=== PATIENT | female | born 1960 | race Caucasian/White ===

== ENCOUNTER 2016-12-11 15:26 | Observation (INO) | payer BC ==
[~2016-12-11 15:26] MED LIST: ISOVUE-370 76%-LOCM 1 ML ONE
[2016-12-11] MEDS ORDERED: Ondansetron HCl/PF 4 MG/2 ML Vial IVP PRN (16:37)
[2016-12-11] MEDS ORDERED: HYDROcodone/Acetaminophen 7.5/325 mg Tablet PO PRN (16:37)
[2016-12-11] MEDS ORDERED: Acetaminophen 325 MG TAB PO PRN (16:37)
[2016-12-11] MEDS ORDERED: Zolpidem Tartrate 5 MG TAB PO PRN (16:37)
[2016-12-11] MEDS ORDERED: methylPREDNISolone Sod Succ/PF 125 MG/2 ML VIAL IVP SCH (16:45)
[2016-12-11 16:49] VITALS: BMI 39.2
[2016-12-11 17:05] LABS: #Lymphocytes 0.6 thou/uL (1.20-3.40); #Monocytes 0.3 thou/uL (0.11-0.59); #Neutrophils 9.5 thou/uL (1.40-6.50); %Basophils 0.2 % (0.0-1.0); %Eosinophils 0.2 % (0.0-10.0); %Lymphocytes 5.6 % (21.0-51.0); %Monocytes 2.5 % (0.0-10.0); Hematocrit 38.4 % (36.0-47.0); Mean Platelet Volume 9.1 fL (7.4-10.4); Red Blood Cell (RBC) Count 4.47 mill/uL (4.20-5.40); White Blood Cell (WBC) Count 10.4 thou/uL (4.8-10.8)
[2016-12-11 17:28] LABS: ALT (SGPT) 21 U/L (8-55); AST (SGOT) 20 U/L (5-34); Alkaline Phosphatase 69 U/L (40-150); Anion Gap 10 mmol/L (10-20); BUN (Urea Nitrogen) 10 mg/dL (9.8-20.1); Bilirubin, Total 0.3 mg/dL (0.2-1.2); Calc. Creatinine Clearance 139 mL/min (70-130); Calcium 8.5 mg/dL (7.8-10.44); Carbon Dioxide 27 mmol/L (22-29); Chloride 105 mmol/L (98-107); Estimated GFR-MDRD 82
--- NOTE | 2016-12-11 17:45 | HP ---
PRIMARY CARE PROVIDER: Dr. Tino eL. Patient referred as a direct admit by Dr. Dandre Story. HISTORY OF PRESENT ILLNESS: The patient has had Crohn's disease for 2 years. In March of this ye ar, she had a big flare with abdominal pain, bloody diarrhea up to 15 times a day. She was tried on Humira through [facility]. In September, it was working adequately and it was stopped. She has had sinc e that time some intermittent abdominal pain, more bloody diarrhea, not is often is 15 times a day, but up until admission. She states her stool has been formed and normal this morning. She had a fe tara of 101.5 last night, 102 last week. She has had no chills, fever, sweats. She was recently judi krystle on Flagyl and prednisone 250 mg p.o. t.i.d. of Flagyl 40 mg in declining doses of prednisone. B ecause of her symptomatology, she was referred for admission. PAST MEDICAL HISTORY: Crohn's disease for 2 years, hypothyroidism on supplement therapy. CURRENT MEDICATIONS: Routine Synthroid 100 mcg a day, recent Flagyl 250 t.i.d., prednisone 40 mg a day. ALLERGIES: None. PAST SURGICAL HISTORY: She had an ectopic with the tube resected. She has had a C-sectio n. She has had carpal tunnel surgery on the right and a tonsillectomy at 19 years of age. FAMILY HISTORY: Mother has inflammatory bowel disease, has had no abdominal aortic aneurysm repair and has a cholesterol problem. Father is alive and well. SOCIAL HISTORY: , nontobacco, nonalcohol user. 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 REVIEW OF SYSTEMS: General: No headaches, dizziness, or fainting. Eyes: No double vision, blurre d vision, flashing lights. ENT: No ear pain or drainage. No nasal bleeding. No trouble swallowin g. Cardiac: No chest pain, orthopnea, or paroxysmal nocturnal dyspnea. Respirations: No cough, w heezing, or asthma. Gastrointestinal: In addition to present illness, she had nausea yesterday wit h no emesis. She has had some vague left abdominal pain. Otherwise, see present illness. Genitour inary: No hematuria, dysuria, or nocturia. Musculoskeletal: No pain or swelling in arms or legs. Neurologic: No strokes, seizures, or focal weakness. Psychiatric: No anxiety, depression. Skin: She had some lumps on her lower legs near her ankle. Recently, however, they disappeared with pre dnisone therapy. No skin lesions otherwise. Heme/Lymph: No tender or swollen lymph nodes in axill a, inguinal, or cervical area. PHYSICAL EXAMINATION: GENERAL: She is alert, appropriate, oriented, cooperative. VITAL SIGNS: Temperature 98.2, pulse 82, respiration 14, blood pressure 118/70. HEENT: Reveal pupils are equal, round, and reactive to light. Extraocular movements are intact. S clerae white. Tympanic membranes clear. Nose clear. Throat clear. NECK: Supple, without jugular venous distention, adenopathy, or thyromegaly. CHEST: Clear to auscultation and percussion. HEART: Regular rate and rhythm. First and second heart sounds are clear. There are no appreciated murmurs or gallops. ABDOMEN: Soft, bowel sounds are normal. There is no significant tenderness, no masses, no hepatosp lenomegaly. EXTREMITIES: Reveal 1+ edema with no cyanosis or clubbing. SKIN: Warm and dry without bruises or rash. HEME/LYMPH: Reveal no tender or swollen lymph nodes in axilla, inguinal or cervical area. No petec hial hemorrhages, no purpura. NEUROLOGIC: Cranial nerves II-XII are intact. Deep tendon reflexes symmetric. Moves all extremiti es. LABORATORY STUDIES: None. ADMITTING DIAGNOSES: 1. Crohn's disease. 2. Bloody diarrhea. 3. Abdominal pain. 4. Fever. 5. Hypothyroidism. PLAN: 1. CBC, comp metabolic profile. 2. Urinalysis, blood and urine cultures. 3. Chest x-ray PA and lateral. 4. CT scan of the abdomen with IV and oral contrast. IV Flagyl 500 mg t.i.d, Rocephin 2 g daily, S brandon-Medrol 125 mg IV push. Continue oral Synthroid. Consult Dr. Ash. We evaluate when data in.
[2016-12-11 18:31] LABS: Anisocytosis MODERATE=16-30 cells (100X) (0-5/hpf); Band 7 % (5-11); Elliptocytes SLIGHT = 2-5 cells (100X) (0-1/hpf); Neutrophil 88 % (42-75); Ovalocytes SLIGHT = 2-5 cells (100X) (0-1/hpf); Polychromasia SLIGHT = 2-3 cells (100X) (0-2/hpf); Target Cells SLIGHT = 2-5 cells (100X) (0-1/hpf); Tear Drops SLIGHT = 2-5 cells (100X) (0-1/hpf)
[2016-12-11] MEDS: cefTRIAXone\\ROCEPHIN 2 GM in Sodium Chloride 0.9% 100 ML IVPB SCH (18:32)
--- NOTE | 2016-12-11 19:31 | RAD ---
TWO VIEWS OF THE CHEST: 12/11/16 COMPARISON: None. HISTORY: Fever. History of Crohn's disease. FINDINGS: Two views of the chest show normal sized cardiomediastinal silhouette. There is no evidence of conso lidation, mass, or pleural effusion. The bones are unremarkable. IMPRESSION: No evidence of acute cardiopulmonary disease. POS: [facility]
[2016-12-11] MEDS: metroNIDAZOLE 500 MG in Premix Bag 1 BAG IVPB SCH (20:54)
[2016-12-11 21:02] LABS: Bilirubin Negative (Negative); Blood, Urine Negative (Negative); Glucose, Urine (Dipstick) Negative (Negative); Ketone, Urine Negative (Negative); Nitrite Negative (Negative); Protein, Urine (Dipstick) Negative (Neg-Trace); Urobilinogen 0.2 mg/dL (0.2-1.0)
[2016-12-11 21:04] LABS: Bacteria/HPF None Seen HPF (None Seen); Hyaline Casts/LPF 0-3 HYALINE CAST LPF (0-3 Hyaline); RBC/HPF 0-3 HPF (0-3); Squamous Epithelial 0-3 HPF (0-3); WBC/HPF None Seen HPF (0-3)
--- NOTE | 2016-12-11 21:56 | CT ---
CT OF THE ABDOMEN AND PELVIS WITH CONTRAST: 12/11/16 COMPARISON: MRI abdomen, 11/29/16. HISTORY: History of Crohn's disease with abdominal pain. TECHNIQUE: Multiple contiguous axial images were obtained in a CT of the abdomen and pelvis with contrast. PO c ontrast was administered. Coronal reformats were performed. FINDINGS: There is stranding changes surrounding the sigmoid colon from just above the rectum to the junction of the descending colon and sigmoid colon. This is stable compared to the findings from prior MRI. T here are a few scattered diverticula appreciated on this exam which were not definitively appreciate d on the prior examination. No free air or free fluid are seen in the abdomen or pelvis. The small b owel is normal in caliber without significant distention. No appendix is visualized. The liver, gall bladder, kidneys, adrenal glands, spleen, and pancreas are unremarkable. No abdominal or pelvic lymp hadenopathy are seen. The reproductive organs are unremarkable. There is a large hiatal hernia. The abdominal wall soft tissues are unremarkable. Degenerative marte es are seen in the spine. IMPRESSION: 1. There is stable stranding changes and thickening in the wall of the sigmoid colon. this coul d be secondary to either Crohn's disease or acute diverticulitis as diverticula are still seen in th e vicinity of the stranding change. 2. Hiatal hernia. POS: [facility]
[2016-12-12] MEDS: metroNIDAZOLE 500 MG in Premix Bag 1 BAG IVPB SCH ×3 (04:04→21:04)
[2016-12-12] MEDS: Levothyroxine Sodium 100 MCG TAB PO SCH (05:03)
--- NOTE | 2016-12-12 06:31 | CON ---
DATE OF CONSULTATION: 12/11/2016 HISTORY OF PRESENT ILLNESS: Ms. Parr was admitted to the hospital today secondary to fever and left lower quadrant pain. 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 Colorectal surgeon did a colonoscopy there and showed necrotizing granulomas and she was refe rred here in 2014 with diagnosis of Crohn's. Initially, we recommended starting TNF inhibitors with perianal disease, but she refused that and we started 6-MP. In 2014, she felt she was doing pretty well. We did not see her back until March 2016 at which time she was having bleeding, diarrhea. She had negative C. diff then, reevaluated as far as labs, and put on Levaquin and Flagyl. She has stopped 6-mercaptopurine in the interval since we have seen her and was not on any medications. On starting Remicade at that point in time, she does not qualify for that and placed on Humira which s he started in April. In May, she felt she was improving and returned in November because of i ncreased fatigue, arthralgias, and increased problems with perianal disease and was stopped the Humi ra. She underwent upper and lower endoscopy in late September. She had anal fissures, skin tags, and hy pertrophied anal papillae, congested vascular pattern, decreased inflammation in the rectum and sigm oid colon from 0 to 40 cm. She has had iron-deficiency anemia and was referred to Hematology for IV iron. She had normal upper endoscopy. MR enterography was ordered, which she did not perform unti l 11/29/2016, which showed thickening in the sigmoid colon from the rectum at the junction of sigmoi d colon and left colon with pericolonic fluid and colonic thickening. She has stopped the Humira on her own and we are planning on starting Entocort which she has not started yet. She returned to [facility] office on 12/06/2016. She was having low-grade fevers. We placed her on prednisone, levofloxacin , and metronidazole. She had a bone scan that showed osteopenia. She get hepatitis B and C antibod ies which were negative. QuantiFERON is pending and she had a histoplasmosis urine antigen ordered, which is pending. These were both done and she denied any fever and had been on anti-TNF agents. She returned to the office today and said she was having sharp left lower quadrant pain intermittent ly last night and still fever up to a 103. The decision was made to admit her to the hospital. PAST MEDICAL HISTORY: 1. Anal fissures and fistulas. Crohn's disease in the perianal area. Initially, this was felt to be hidradenitis but seems to be Crohn's based on serology and biopsy showing granulomas. 2. Iron-deficiency anemia. 3. Left lower quadrant pain. 4. Hypothyroidism. PAST SURGICAL HISTORY: Carpal tunnel, colonoscopy, ectopic , laparoscopy, section . ALLERGIES: KIWI, LATEX, STRAWBERRIES, and WALNUTS. MEDICATIONS: Prednisone, levofloxacin, metronidazole, hydralazine, and Synthroid. PHYSICAL EXAMINATION: VITAL SIGNS: In the office today, temperature 98, pulse 100, blood pressure 122/84. Weight 230. LUNGS: Clear. HEART: Regular rate and rhythm without clicks or murmurs. ABDOMEN: Soft, tender in the left lower quadrant. There is no rebound. There is no guarding. REVIEW OF SYSTEMS: Negative for dysuria, frequency, urgency, cough, shortness of breath, dyspnea. She had had some nodules on her skin in her lower legs at last visit, but these have resolved. ASSESSMENT: History of Crohn's. I do not think she ever had hidradenitis. She had no real improve ment with Humira but stopped on her own after 3 months. She has been on no therapy for several richard hs now and re-presented to the office 2 months after the last endoscopy with left lower quadrant mellissa n and fever and MRI showed fluid around the left colon. She was started empirically back on antibio tics, attempting get her on Entyvio as an outpatient and will be started on prednisone, but she cont inues to have fever and now is being admitted for further imaging and workup. RECOMMENDATIONS: 1. CAT scan of abdomen and pelvis. 2. IV Flagyl, Levaquin, and Solu-Medrol. 3. Clostridium difficile toxin. 4. Urine histoplasmosis antigen. 5. Chest x-ray. We will follow along during this hospitalization.
--- NOTE | 2016-12-12 08:08 | PDOC.PN ---
- Subjective Encounter Start Date: 12/12/16 Encounter Start Time: 08:04 Subjective: mild abd discomfort,no diarrhea - Objective Resuscitation Status: Resuscitation Status FULL:Full Resuscitation MAR Reviewed: Yes Vital Signs & Weight: Vital Signs (12 hours) Temp Pulse Resp BP Pulse Ox 12/12/16 07:55 98.4 F 64 12 110/63 96 12/12/16 04:00 97.9 F 61 14 127/68 93 L 12/11/16 23:22 98.6 F 72 12 106/60 91 L 12/11/16 20:55 98.6 F 82 16 Weight Weight 228 lb 8 oz I&O: 12/11/16 12/12/16 12/13/16 06:59 06:59 06:59 Intake Total 1017 Output Total 800 Balance 217 Result Diagrams: 12/11/16 16:49 12/11/16 16:49 Radiology Reviewed by me: Yes (cxr- no mass, infiltrate) EKG Reviewed by me: Yes (ct abd- crohns vs diverticulitis) Phys Exam - Physical Examination Constitutional: NAD Neck: no JVD Respiratory: clear to auscultation bilateral Cardiovascular: RRR, no significant murmur Gastrointestinal: soft, no distention, positive bowel sounds Musculoskeletal: no edema Dx/Plan (1) Crohns disease Code(s): K50.90 - CROHN'S DISEASE, UNSPECIFIED, WITHOUT COMPLICATIONS Status: Acute (2) Bloody diarrhea Code(s): R19.7 - DIARRHEA, UNSPECIFIED Status: Acute (3) Abdominal pain Code(s): R10.9 - UNSPECIFIED ABDOMINAL PAIN Status: Acute (4) Fever Code(s): R50.9 - FEVER, UNSPECIFIED Status: Acute - Plan afebrile since admission, cont antibx, discuss with Dr Ash * .
[2016-12-12] MEDS: cefTRIAXone\\ROCEPHIN 2 GM in Sodium Chloride 0.9% 100 ML IVPB SCH (17:38)
[2016-12-12] MEDS ORDERED: methylPREDNISolone Sod Succ/PF 125 MG/2 ML VIAL IVP SCH (20:30)
--- NOTE | 2016-12-12 22:04 | PRG ---
DATE OF SERVICE: 12/12/2016 Ms. Reyez has had no fever since admission. She states that her left lower quadrant pain is better. PHYSICAL EXAMINATION: VITAL SIGNS: Temperature is 98, pulse is 66, blood pressure 111/66. ABDOMEN: Soft. Left lower quadrant tenderness has improved. LABORATORY STUDIES: No labs done today. ASSESSMENT: Crohn's disease, sigmoid and rectum. Symptoms improved, markedly with IV steroids and IV Levaquin and Flagyl. PLAN: Continue present treatment. Consider discharge in 1-2 days on oral regimen, but awaiting get ting private branch exchange operator to Entyvio. Treatment plan discussed with primary hospitalist and patient.
[2016-12-13] MEDS: Levothyroxine Sodium 100 MCG TAB PO SCH (05:23)
[2016-12-13] MEDS: metroNIDAZOLE 500 MG in Premix Bag 1 BAG IVPB SCH (05:23)
[2016-12-13 08:11] VITALS: BP 129/78; TEMP 97.3
--- NOTE | 2016-12-13 08:53 | DIS ---
TRANSFER OF CARE NOTE PRIMARY CARE PROVIDER: Dr. Le REFERRING PHYSICIAN: Dr. Dandre Ash DATE OF ADMISSION: 12/11/2016. DATE OF DISCHARGE: 12/13/2016 DISPOSITION: Discharged home. FINAL DIAGNOSES: 1. Crohn's disease with fever. 2. Abdominal pain. 3. Diarrhea. 4. Hypothyroidism. DISCHARGE MEDICATIONS: Levaquin 500 mg a day for 14 days, Flagyl 250 mg p.o. t.i.d., prednisone 40 mg a day, levothyroxine 100 mcg a day. ALLERGIES: None. PENDING AT THE TIME OF DISCHARGE: Nothing. CODE STATUS: Full. HOSPITAL COURSE: The patient admitted with fevers up to 102, recent bloody diarrhea, abdominal pain . She has been afebrile since admission. CBC was unremarkable with a white count of 10.4, hemoglob in 12.1, platelet count 295,000. Comp metabolic profile was normal. Chest x-ray revealed no lesion s. Abdominal CT revealed no process other than her known Crohn's disease. She was seen in consulta tion by Dr. Ash. No procedures were done. She is being discharged at this time with followup with Dr. Ash in 7 days.
== END 2016-12-13 10:47 | disposition home or self-care (01) ==
LOC: 2SW 15:26
PROVIDERS: ADMIT Internal Medicine; ATTEND Internal Medicine
DX: K50.90 Crohn's disease, unspecified, without complications (principal); R50.9 Fever, unspecified; R10.9 Unspecified abdominal pain; R19.7 Diarrhea, unspecified; E03.9 Hypothyroidism, unspecified; D50.9 Iron deficiency anemia, unspecified; M85.80 Other specified disorders of bone density and structure, unspecified site; K60.2 Anal fissure, unspecified; L91.8 Other hypertrophic disorders of the skin; K62.89 Other specified diseases of anus and rectum; Z79.899 Other long term (current) drug therapy; Z91.040 Latex allergy status; Z90.89 Acquired absence of other organs; Z98.890 Other specified postprocedural states; Z87.59 Personal history of other complications of pregnancy, childbirth and the puerperium
CPT/HCPCS: 36415; 71020; 74177; 80053; 81001; 85025; 87040; 87086; 87324; 87385; 87449; 96365; 96366; 96367; 96375; 96376; G0378; J0696; J2930; J7050

== ENCOUNTER 2017-01-13 17:56 | Emergency (ER) | payer OTHER, BC ==
[2017-01-13] MEDS ORDERED: Lidocaine 1% PF 5 ML VIAL ONE (18:35)
[2017-01-13] MEDS ORDERED: Bacitracin Zinc 1 Packet ONE (19:11)
== END 2017-01-13 19:15 | disposition home or self-care (01) ==
LOC: ERS 17:56
DX: S01.81XA Laceration without foreign body of other part of head, initial encounter (principal); D64.9 Anemia, unspecified; E66.9 Obesity, unspecified; Z79.899 Other long term (current) drug therapy; W22.8XXA Striking against or struck by other objects, initial encounter
CPT/HCPCS: 12013; J2001

== ENCOUNTER 2017-02-06 17:25 | Inpatient (IN) | payer BC ==
[2017-02-06] MEDS ORDERED: Acetaminophen 500 MG TAB PO PRN (18:18)
[2017-02-06] MEDS ORDERED: Ondansetron HCl/PF 4 MG/2 ML Vial IVP PRN (18:18)
[2017-02-06] MEDS ORDERED: Loperamide HCl 2 MG CAP PO PRN (18:18)
[2017-02-06] MEDS ORDERED: Ondansetron ODT 4 MG TAB PO PRN (18:18)
[2017-02-06] MEDS ORDERED: Loperamide HCl 2 MG CAP PO SCH (18:18)
[2017-02-06 18:26] LABS: #Lymphocytes 1.6 thou/uL (1.20-3.40); #Monocytes 0.9 thou/uL (0.11-0.59); #Neutrophils 13.4 thou/uL (1.40-6.50); %Basophils 0.2 % (0.0-1.0); %Eosinophils 0.2 % (0.0-10.0); %Monocytes 5.7 % (0.0-10.0); Hematocrit 47.7 % (36.0-47.0); Mean Platelet Volume 8.2 fL (7.4-10.4); Red Blood Cell (RBC) Count 5.05 mill/uL (4.20-5.40); White Blood Cell (WBC) Count 15.9 thou/uL (4.8-10.8)
[2017-02-06] MEDS ORDERED: methylPREDNISolone Sod Succ/PF 125 MG/2 ML VIAL IVP SCH (18:30)
[2017-02-06 18:52] LABS: ALT (SGPT) 11 U/L (8-55); AST (SGOT) 10 U/L (5-34); Alkaline Phosphatase 72 U/L (40-150); Anion Gap 12 mmol/L (10-20); BUN (Urea Nitrogen) 16 mg/dL (9.8-20.1); Calc. Creatinine Clearance 0 mL/min (70-130); Carbon Dioxide 26 mmol/L (22-29); Chloride 100 mmol/L (98-107); Estimated GFR-MDRD 72; Protein, Total 6.7 g/dL (6.0-8.3)
--- NOTE | 2017-02-06 19:08 | RAD ---
CHEST TWO VIEWS 02/06/17 HISTORY: Fever. Chest pain. COMPARISON: 12/11/16 FINDINGS: The cardiac silhouette and pulmonary vasculature are unremarkable. Mediastinum is midline. There is n o confluent air space consolidation, pneumothorax or pleural fluid. Air fluid level within a hiatal h ernia is similar in appearance to the previous study. IMPRESSION: No active cardiopulmonary abnormalities are demonstrated. POS: [facility]
[2017-02-06 21:26] VITALS: BMI 38.5
[2017-02-06] MEDS: Sodium Chloride 0.9% 1,000 ML IV SCH (21:34)
[2017-02-06] MEDS: Famotidine 20 MG TAB PO SCH (21:35)
--- NOTE | 2017-02-07 00:19 | HP ---
DATE OF ADMISSION: 02/06/2017 PRIMARY CARE PHYSICIAN: Tino Le M.D. PRIMARY TOILET PRODUCTS MOLDER: Dandre Ash M.D. CHIEF COMPLAINT: Fever and diarrhea. HISTORY OF PRESENT ILLNESS: This is a 56-year-old female with a known history of Crohn's c olitis currently receiving Entyvio injections last received within the first part of 01/2017. The pa maren states she previously was treated with Humira and oral prednisone for management. The patient states she underwent endoscopy in the summer of 2016 with biopsies and examination confirming Crohn's . The patient denies any recent travel history, but does state she developed a fever up to 102.8 at home on 02/05/2017 and noted fever in the 102.4 range on 02/06/2017. The patient states she had some diarrhea that was nonbloody with abdominal cramping and left lower quadrant pain. The patient becam e concerned with her symptoms calling her primary timekeeper who referred the patient to the hospital for admission. The patient denies any recent antibiotic exposure other than a Crohn's flare and admission in 12/11/2016 through 12/13/2016. PAST MEDICAL HISTORY: 1. Crohn's colitis, recurrent flares. 2. Hypothyroidism on replacement therapy. PAST SURGICAL HISTORY: 1. Status post excision of ectopic with status post salpingectomy. 2. Status post section. 3. Status post carpal tunnel release of the right. 4. Status post tonsillectomy. CURRENT MEDICATIONS: 1. Synthroid 100 mcg 1 tab p.o. daily. 2. Prednisone 40 mg p.o. daily. 3. Entyvio infusions q. monthly. ALLERGIES: LATEX. FAMILY HISTORY: Mother with inflammatory bowel disease. Father alive and well. SOCIAL HISTORY: The patient is . No alcohol, tobacco or illicit drug use. 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 REVIEW OF SYSTEMS: The following complete review of systems was negative, unless otherwise mentioned in the HPI or below: Constitutional: Weight loss or gain, ability to conduct usual activities. Skin: Rash, itching. Eyes: Double vision, pain. ENT/Mouth: Nose bleeding, neck stiffness, pain, tenderness. Cardiovascular: Palpitations, dyspnea on exertion, orthopnea. Respiratory: Shortness of breath, wheezing, cough, hemoptysis, fever or night sweats. Gastrointestinal: Poor appetite, abdominal pain, heartburn, nausea, vomiting, constipation, or diarr hea. Genitourinary: Urgency, frequency, dysuria, nocturia. Musculoskeletal: Pain, swelling. Neurologic/Psychiatric: Anxiety, depression. Allergy/Immunologic: Skin rash, bleeding tendency. Otherwise, negative except as stated per HPI. PHYSICAL EXAMINATION: VITAL SIGNS: On admission, blood pressure 121/62, pulse 92, respiratory rate 12, temperature 102.4 d egrees Fahrenheit, O2 saturation 98% on room air. GENERAL APPEARANCE: This is a 56-year-old female, alert and oriented x3, pleasant, convers ant, in no acute distress. HEENT: Pupils are equal, round, and reactive to light and accommodation. Extraocular muscles are in tact. No scleral icterus. No conjunctival injection. Nares patent. OP is clear. Teeth in good re pair. NECK: Supple, no cervical adenopathy, no thyromegaly, no carotid bruits, no JVD appreciated. Cervic al spine with full active and passive range of motion. CHEST: Lungs are clear to auscultation bilaterally. CARDIOVASCULAR: S1, S2, without noted murmur. ABDOMEN: Rounded, soft, nontender, nondistended. Bowel sounds are positive in all four quadrants. There is no hepatosplenomegaly, no abdominal bruits, no rebound or guarding appreciated. EXTREMITIES: Warm and dry with fair turgor. No clubbing, cyanosis or asymmetric edema appreciated. Pulses palpable distally at the dorsalis pedis, posterior tibial, and popliteal arteries bilaterally . Capillary refill less than 2 seconds. NEUROLOGIC: Cranial nerves II-XII are grossly intact. No focal or lateralizing signs appreciated. PERTINENT LABORATORY DATA AND X-RAY FINDINGS: CBC showed a white blood cell count of 15.9, hemoglobi n 15, hematocrit 48, platelet count 233 with 84% neutrophilia. ASSESSMENT AND PLAN: 1. Crohn's colitis. The patient will be admitted to the medical floor. We will initiate Solu-Medro l 40 mg IV q. 6 hours. We will hold IV antibiotic therapy currently. Continue intravenous normal sa line at 100 mL per hour. We will consult GI service for further evaluation and comanagement. 2. Leukocytosis with neutrophilia secondary to #1. We will hold antibiotic therapy and monitor clin ical response to Solu-Medrol. Repeat CBC in the a.m. 3. Febrile episode, secondarily to #1. See management as outlined previously. 4. Hypothyroidism. Resume Synthroid 100 mcg p.o. daily. 5. Prophylaxis. Sequential compression devices while in bed. Pepcid 20 mg p.o. b.i.d. 6. Code status is FULL. Surrogate medical decision maker is Kelly Peterson.
--- NOTE | 2017-02-07 03:06 | CON ---
DATE OF CONSULTATION: 02/06/2017 CHIEF COMPLAINT: Abdominal pain, diarrhea, and fever. HISTORY OF PRESENT ILLNESS: Ms. Reyez is a 56-year-old woman with Crohn's colitis and history of per ianal disease who presented to GI clinic today after she had onset of fever at 1:00 this morning, whi ch she reports is over 102 degrees. She had been doing well over the last week without abdominal mellissa n in the last couple of weeks and no diarrhea over the last week with normal formed stools; however, last night she developed diarrhea every hour. Due to the fever and worsening diarrhea and also left lower quadrant aching pain that becomes sharp when she gets up and walks around and she was admitted for further care. Her abdominal pain is currently better, and again it does worsen when she gets up and walks around. She has had no blood in the stool today. There was some mucus in the stool. She has been on prednisone since November. She started 40 mg and then was started on Entyvio around . The prednisone was attempted to taper down, but then her symptoms flare back up, so she has remained on 40 mg daily. She has had 2 infusions of the Entyvio so far. PAST MEDICAL HISTORY: Crohn's disease with perianal disease and colon involvement, biopsies showed g ranulomas. Iron deficiency anemia for which she has received IV iron, hypothyroidism. PAST SURGICAL HISTORY: Carpal tunnel surgery, ectopic , laparoscopy, , colonoscopy . FAMILY HISTORY: Positive for colon cancer in a paternal grandfather. Her father had Maher's esoph logan. Her mother had inflammatory bowel disease. SOCIAL HISTORY: Occasional alcohol, no drugs, no smoking. She is , has two children. ALLERGIES: LATEX, KIWI, STRAWBERRIES, and WALNUTS. MEDICATIONS: Prior to admission, prednisone 40 mg daily, Entyvio 300 mg infusions with the next dose in one month, hydrochlorothiazide 12.5 mg daily, Synthroid 100 mcg daily. REVIEW OF SYSTEMS: Negative x10 systems reviewed except as stated in the history of present illness. PHYSICAL EXAMINATION: VITAL SIGNS: Temperature 100.0, pulse 109, blood pressure 118/70. GENERAL: She is in no acute distress, alert and oriented x3. HEENT: Eyes have no scleral icterus. Oropharynx is clear, without lesions. NECK: No cervical or supraclavicular lymphadenopathy. LUNGS: Clear to auscultation bilaterally. HEART: Tachycardic S1, S2, without murmur. ABDOMEN: Soft, currently nondistended and nontender. Bowel sounds are present. EXTREMITIES: Have no lower extremity edema. LABORATORY DATA: White blood cell count 15.9, hemoglobin 15.0, platelets 223. Sodium 134, potassium 3.5, chloride 100, CO2 of 26, BUN 16, creatinine 0.82, bilirubin 1.0, AST 10, ALT 11, alkaline phosp hatase 72. C-reactive protein is 8.28, albumin 3.7. She did have abdominal CT scan on 12/11/2016, w hich showed thickening of the morgan of the sigmoid colon and hiatal hernia. MRI on 11/29/2016 showed again thickening of the sigmoid colon to the rectum. IMPRESSION: 1. Exacerbation of Crohn's colitis. She had more significant inflammatory changes noted endoscopica lly if the rectum and sigmoid colon by colonoscopy in 09/[address] Ash. Biopsies did show archi tectural distortion and inflammatory changes; however, granulomas were not seen on those studies. En doscopically, there were not ulcerations; however, there was an altered vascular pattern and congesti on. Followup MR enterography in November showed thickening of the rectum and sigmoid colon. She wa s originally diagnosed in 2014 and treated with azathioprine, so she initially declined anti-TNF desp ite the history of perianal disease. She then did not follow up until 2016 at which point she was st arted on Humira, which she took for 3 months and then took herself off because she did not think she was achieving adequate clinical response. She just started Entyvio just under a month ago and has hilario d her first 2 low loading doses. She has been on prednisone now for at least 6 weeks. Her symptoms have been intermittent and in fact she reports that over the last week, she has mostly had formed sto ols until last night, she developed the diarrhea and fever. She did have some left lower quadrant pa in and has a history of diverticulitis; however, currently she is nontender to palpation, she unlikel y as diverticulitis now. In light of the fever and diarrhea and use of prednisone over the last 6 we eks, we will need to now rule out infectious process including C. diff. If the stool studies are neg ative and her symptoms persist, then repeat flexible sigmoid colonoscopy could be performed with biop sies, specifically to rule out cytomegalovirus. 2. Fever. Specific source is being evaluated for at this point. The white blood cell count is elev ated. Her C-reactive protein is markedly elevated. RECOMMENDATIONS: 1. She will be treated with IV steroids. Stool studies will be sent including C. diff and culture a nd ova and parasite. If the stool studies are negative, then followup colonoscopy versus flexible si gmoidoscopy could be considered to biopsy for CMV. 2. It can take months for Entyvio to take effect and she is being supported with steroids in the [facility] ntime.
[2017-02-07] MEDS: Levothyroxine Sodium 100 MCG TAB PO SCH (05:51)
[2017-02-07] MEDS: Sodium Chloride 0.9% 1,000 ML IV SCH ×2 (05:51→17:34)
[2017-02-07 06:16] LABS: Band 11 % (5-11); Hematocrit 42.7 % (36.0-47.0); Mean Platelet Volume 8.3 fL (7.4-10.4); Neutrophil 84 % (42-75); Red Blood Cell (RBC) Count 4.55 mill/uL (4.20-5.40); White Blood Cell (WBC) Count 12.9 thou/uL (4.8-10.8)
--- NOTE | 2017-02-07 07:38 | PDOC.PN ---
- Subjective Encounter Start Date: 02/07/17 Encounter Start Time: 07:37 Ms. Reyez was seen today in follow-up of a Crohn's flair. She says she is having less diarrhea than yesterday. She has less abdominal pain but it is still present. - Objective Resuscitation Status: Resuscitation Status FULL:Full Resuscitation MAR Reviewed: Yes Vital Signs & Weight: Vital Signs (12 hours) Temp Pulse Resp BP Pulse Ox 02/07/17 04:00 97.6 F 65 16 93/63 95 02/07/17 00:00 98.7 F 68 16 99/67 94 L 02/06/17 20:40 101.6 F H 107 H 18 97 02/06/17 20:00 101.6 F H 107 H 16 103/69 97 Weight Weight 224 lb 6 oz I&O: 02/06/17 02/07/17 02/08/17 06:59 06:59 06:59 Intake Total 1160 Balance 1160 Result Diagrams: 02/07/17 04:18 02/06/17 18:04 Phys Exam - Physical Examination HEENT: PERRLA Respiratory: no wheezing, no rales, no rhonchi, clear to auscultation bilateral Cardiovascular: RRR, no significant murmur, no rub Gastrointestinal: soft + LLQ tenderness, no rebound or guarding Musculoskeletal: no edema Dx/Plan (1) Acute Crohn's disease Code(s): K50.90 - CROHN'S DISEASE, UNSPECIFIED, WITHOUT COMPLICATIONS Status: Acute (2) Hypothyroidism Code(s): E03.9 - HYPOTHYROIDISM, UNSPECIFIED Status: Acute (3) Obesity (BMI 35.0-39.9 without comorbidity) Code(s): E66.9 - OBESITY, UNSPECIFIED Status: Acute - Plan * Crohn's Disease Flair- She has improved overnight with IV steroids * Will continue IV solumedrol * Stool studies are pending * Continue as per GI recommendations * Hypothyroidism- she is clinically euthyroid- continue Levothyroxin .
[2017-02-07] MEDS: Famotidine 20 MG TAB PO SCH ×2 (08:59→21:45)
[2017-02-07] MEDS ORDERED: Sterile Water 10 ML ONE (11:09)
--- NOTE | 2017-02-07 21:38 | PRG ---
DATE OF SERVICE: 02/07/2017 SUBJECTIVE: Her diarrhea is improving today. She is down to 5 or 6 stools today compared to many mo re yesterday. Her abdominal pain is better. She still has some mild pain in the left abdomen toward s the epigastric region, but this is very mild overall. She has had no further fever today. OBJECTIVE: VITAL SIGNS: Temperature 97.8, pulse 72, blood pressure 113/76. GENERAL: She is in no acute distress, alert and oriented x3. LUNGS: Clear to auscultation bilaterally. HEART: Regular rate and rhythm. ABDOMEN: Soft, nontender, nondistended, bowel sounds are present, no hepatomegaly. EXTREMITIES: No lower extremity edema. LABORATORY DATA: White blood cell count 12.9, hemoglobin 13.5, platelets 197. Creatinine 0.82, bili dave 1.0, AST 10, ALT 11, alkaline phosphatase 72. The Cryptosporidium and Giardia antigens were ne gative. Campylobacter and E. coli Shiga toxins are negative. C. diff antigen and toxin were negativ e. Blood cultures are negative so far. IMPRESSION: 1. Exacerbation of Crohn's colitis. Her symptoms are already improving rapidly with IV steroids. H er methylprednisolone was changed to 20 mg q.8 hours. If she continues to do well, then we could pote ntially change her to oral prednisone on Friday. Stool studies are negative for infection. CMV DNA serology is pending. 2. Fever. She has had no further fever today. The source of the intermittent fever prior to this i s not identified. RECOMMENDATIONS: 1. Continue methylprednisolone. 2. If her symptoms worsen again, then we will plan flex sigmoid with biopsies to evaluate for CMV. In the meantime, CMV DNA is pending. 3. She has received Entyvio first two infusions. In the meantime, she is being supported with [employer] until this at this time to take effect.
[2017-02-08] MEDS: Levothyroxine Sodium 100 MCG TAB PO SCH (06:09)
[2017-02-08] MEDS: Sodium Chloride 0.9% 1,000 ML IV SCH ×3 (06:10→20:28)
[2017-02-08] MEDS: Famotidine 20 MG TAB PO SCH ×2 (08:45→20:31)
--- NOTE | 2017-02-08 09:23 | PDOC.PN ---
- Subjective Encounter Start Date: 02/08/17 Encounter Start Time: 09:21 Ms. Reyez was seen today in follow-up of Crohn's disease flair. she says that the abdominal pain has improved. She did have a mucoid stool with blood last night, but it was solid this morning. - Objective Resuscitation Status: Resuscitation Status FULL:Full Resuscitation MAR Reviewed: Yes Vital Signs & Weight: Vital Signs (12 hours) Temp Pulse Resp BP Pulse Ox 02/08/17 08:48 97.9 F 63 20 115/78 98 Weight Weight 224 lb 6 oz I&O: 02/07/17 02/08/17 02/09/17 06:59 06:59 06:59 Intake Total 1160 2410 Balance 1160 2410 Result Diagrams: 02/07/17 04:18 02/06/17 18:04 Phys Exam - Physical Examination HEENT: PERRLA Respiratory: no wheezing, no rales, no rhonchi, clear to auscultation bilateral Cardiovascular: RRR, no significant murmur, no rub Gastrointestinal: soft, positive bowel sounds + mild left lower quandrant tenderness , no rebound or guarding Musculoskeletal: no edema Dx/Plan (1) Acute Crohn's disease Code(s): K50.90 - CROHN'S DISEASE, UNSPECIFIED, WITHOUT COMPLICATIONS Status: Acute (2) Hypothyroidism Code(s): E03.9 - HYPOTHYROIDISM, UNSPECIFIED Status: Acute (3) Obesity (BMI 35.0-39.9 without comorbidity) Code(s): E66.9 - OBESITY, UNSPECIFIED Status: Acute - Plan * Acute flair of Crohn's disease- she is improving- Continue Solumedrol IV * Stool studies were negative for infection * History of Hypothyroidism- stable- she is clinically euthyroid * Await further recommendations from GI.
--- NOTE | 2017-02-08 16:07 | PRG ---
DATE OF SERVICE: 02/08/2017 SUBJECTIVE: Ms. Reyez passed some mucousy stools mixed with streaks of red blood a couple times mary ann ier this morning. Later in the morning, she passed a formed brown stool. She has some mild left low er quadrant tenderness, but no ongoing pain. PHYSICAL EXAMINATION: VITAL SIGNS: Temperature 98.0, pulse 68, blood pressure 119/75. GENERAL: She is in no acute distress and is alert and oriented x3. HEENT: Eyes have no scleral icterus. LUNGS: Clear to auscultation bilaterally. HEART: Regular rate and rhythm. ABDOMEN: Soft, nontender, mildly tender in the left lower quadrant. Bowel sounds are present. EXTREMITIES: No lower extremity edema. LABORATORY DATA: White blood cell count 12.9, hemoglobin 13.5, platelets 197. Creatinine 0.82, bili dave 1.0, AST 10, ALT 11. These labs were from 02/06/2017. IMPRESSION: 1. Exacerbation of Crohn's colitis. Her diarrhea is resolved with IV steroids. She does have evide nce of rectal inflammation or distal inflammation given the mucus and mixture of streaks of red blood . She had a formed brown stool this morning. She has rapidly improved with IV steroids. We should be able to switch over to oral prednisone tomorrow and then watch her until Friday to see how she steinberg s once she is on the oral steroids. 2. Fever. No source for the fever has been identified. She has not had fever since admission. Her white blood cell count was elevated, but it is down somewhat now. 3. C-reactive protein was significantly elevated consistent with the active inflammation in her colo n. RECOMMENDATIONS: 1. Methylprednisolone today. Tomorrow morning, stop the methylprednisolone and change to prednisone 40 mg daily. 2. Await CMV DNA. 3. If her symptoms worsen again after changing to the oral steroids, then recommend flexible sigmoid oscopy versus colonoscopy with biopsies. 4. She has received Entyvio 2 infusions so far and the next infusion will be due in around a month.
[2017-02-09] MEDS: Levothyroxine Sodium 100 MCG TAB PO SCH (05:16)
[2017-02-09] MEDS: Sodium Chloride 0.9% 1,000 ML IV SCH ×3 (05:16→18:24)
[2017-02-09] MEDS: predniSONE 20 MG TAB PO SCH (08:27)
[2017-02-09] MEDS: Famotidine 20 MG TAB PO SCH ×2 (08:27→20:06)
--- NOTE | 2017-02-09 09:16 | PDOC.PN ---
- Subjective Encounter Start Date: 02/09/17 Encounter Start Time: 09:14 Ms. bates was seen today in follow-up of Crohn's disease flair. she says she had a few loose stools this morning, however the pain in the left lower abdomen has improved. She did not have pain today with eating. - Objective Resuscitation Status: Resuscitation Status FULL:Full Resuscitation MAR Reviewed: Yes Vital Signs & Weight: Vital Signs (12 hours) Temp Pulse Resp BP Pulse Ox 02/09/17 08:00 97.7 F 58 L 18 112/77 100 Weight Weight 224 lb 6 oz I&O: 02/08/17 02/09/17 02/10/17 06:59 06:59 06:59 Intake Total 2410 2840 Balance 2410 2840 Result Diagrams: 02/07/17 04:18 02/06/17 18:04 Phys Exam - Physical Examination HEENT: PERRLA Respiratory: no wheezing, no rales, no rhonchi, clear to auscultation bilateral Cardiovascular: RRR, no significant murmur Gastrointestinal: soft, non-tender, positive bowel sounds Musculoskeletal: no edema Dx/Plan (1) Acute Crohn's disease Code(s): K50.90 - CROHN'S DISEASE, UNSPECIFIED, WITHOUT COMPLICATIONS Status: Acute (2) Hypothyroidism Code(s): E03.9 - HYPOTHYROIDISM, UNSPECIFIED Status: Acute (3) Obesity (BMI 35.0-39.9 without comorbidity) Code(s): E66.9 - OBESITY, UNSPECIFIED Status: Acute - Plan * Crohn's disease flair- improving with Steroids, and she is now on Prednisone * She is tolerating a regular diet * Disposition as per Gastroenterology .
--- NOTE | 2017-02-09 23:35 | PRG ---
DATE OF SERVICE: 02/09/2017 SUBJECTIVE: She had some small volume diarrhea a couple times this morning. No blood in the stool, no significant abdominal pain. OBJECTIVE: VITAL SIGNS: Temperature 97.7, pulse 53 and blood pressure 113/78. GENERAL: She is in no acute distress, alert and oriented x3. LUNGS: Clear to auscultation bilaterally. HEART: Regular rate and rhythm without murmur. ABDOMEN: Soft. Minimal tenderness in the left abdomen. Bowel sounds are present. IMPRESSION: 1. Exacerbation of Crohn's colitis. Her diarrhea has improved and pain is improved with IV steroids . She has transitioned to oral prednisone today. If she tolerates this transition, then she can pot entially discharge home tomorrow. 2. She had fever prior to admission, for which the source was not identified. She has had no furthe r fevers during this hospital stay. RECOMMENDATIONS: 1. Prednisone 40 mg daily. 2. Await CMV DNA. 3. If her symptoms worsen again after changing to the oral steroids, then flexible sigmoidoscopy tara jeremy colonoscopy with biopsies should be performed. 4. She has received her first infusions of Entyvio with the next being in a month. As stated before , this can take several months for the Entyvio to take effect and she is being bridged with steroids in the meantime.
[2017-02-10 04:47] LABS: Troponin I Less than 0.010 ng/mL (< 0.028)
[2017-02-10 04:51] LABS: Anion Gap 9 mmol/L (10-20); BUN (Urea Nitrogen) 19 mg/dL (9.8-20.1); Calc. Creatinine Clearance 139 mL/min (70-130); Calcium 8.8 mg/dL (7.8-10.44); Carbon Dioxide 23 mmol/L (22-29); Chloride 111 mmol/L (98-107); Estimated GFR-MDRD 85; Magnesium 2.2 mg/dL (1.6-2.6)
[2017-02-10] MEDS: Levothyroxine Sodium 100 MCG TAB PO SCH (05:48)
[2017-02-10] MEDS: Sodium Chloride 0.9% 1,000 ML IV SCH (07:12)
[2017-02-10] MEDS: predniSONE 20 MG TAB PO SCH (08:42)
[2017-02-10] MEDS: Famotidine 20 MG TAB PO SCH (08:44)
--- NOTE | 2017-02-10 09:04 | PDOC.PN ---
- Subjective Encounter Start Date: 02/10/17 Encounter Start Time: 09:02 Ms. Reyez was seen today in follow-up for Crohn's disease flair, and low heart rate. she is doing better with regards to abdominal pain. She was noted to have a slow heart rate this morning, but when I checked it manually it was around 68- 70. He never felt dizzy or lightheaded, denies chest pain or shortness of breath. - Objective Resuscitation Status: Resuscitation Status FULL:Full Resuscitation MAR Reviewed: Yes Vital Signs & Weight: Vital Signs (12 hours) Temp Pulse Resp BP Pulse Ox 02/10/17 08:48 97.6 F 49 L 18 117/80 99 02/10/17 03:10 41 L 109/71 Weight Weight 236 lb I&O: 02/09/17 02/10/17 02/11/17 06:59 06:59 06:59 Intake Total 2840 2510 Balance 2840 2510 Result Diagrams: 02/07/17 04:18 02/10/17 03:36 Phys Exam - Physical Examination HEENT: PERRLA Respiratory: no wheezing, no rales, no rhonchi Cardiovascular: RRR, no significant murmur Gastrointestinal: soft, non-tender, positive bowel sounds Musculoskeletal: no edema Dx/Plan (1) Acute Crohn's disease Code(s): K50.90 - CROHN'S DISEASE, UNSPECIFIED, WITHOUT COMPLICATIONS Status: Acute (2) Hypothyroidism Code(s): E03.9 - HYPOTHYROIDISM, UNSPECIFIED Status: Acute (3) Obesity (BMI 35.0-39.9 without comorbidity) Code(s): E66.9 - OBESITY, UNSPECIFIED Status: Acute - Plan * Crohn's Disease flair- improving. She is currently on oral medications * Bradycardia- EKG was sinus, and her troponin was negative- this was also asymptomatic, and appears to have resolved by the time I saw her- will observe. If she stays asymptomatic, and her hear rate dose not fall below 40, then this would not preclude her being discharged * Hypothyroidism- stable .
[2017-02-10 09:28] LABS: Troponin I Less than 0.010 ng/mL (< 0.028)
[2017-02-10 12:52] VITALS: TEMP 97.9
[2017-02-10 14:43] LABS: Troponin I Less than 0.010 ng/mL (< 0.028)
[2017-02-10 17:06] VITALS: BP 123/81
--- NOTE | 2017-02-10 18:37 | PRG ---
DATE OF SERVICE: 02/10/2017 SUBJECTIVE: She feels fine today. She has had no bowel movement today. She had an episode of dawit cardia last night down to the 40s, but now has been asymptomatic otherwise. OBJECTIVE: VITAL SIGNS: Temperature 97.9, pulse 71, blood pressure 123/81. GENERAL: She is in no acute distress, alert and oriented x3. HEENT: Eyes have no scleral icterus. LUNGS: Clear to auscultation bilaterally. HEART: Regular rate and rhythm. ABDOMEN: Soft, nontender, nondistended. Bowel sounds are present. EXTREMITIES: No lower extremity edema. IMPRESSION: 1. Exacerbation of Crohn's colitis. Her diarrhea improved with a few days of IV steroids. She is t olerating oral prednisone well now until last few days and she should be ready to discharge home [facility]. 2. Fever prior to admission. The source for this has not been identified. She has had no further f pacheco throughout this hospital stay. RECOMMENDATIONS: 1. Taper prednisone 40 mg daily for a week, 30 mg daily for a week, 20 mg daily for a week, 10 mg da shauna for a week, 5 mg daily for a week, and then discontinue. This can be further adjusted by her [facility] dry cleaning attendant, Dr. Ash as an outpatient. 2. She is due for her next dose of Entyvio on 02/20/2017, 10 days from now. 3. Await CMV, DNA.
--- NOTE | 2017-02-11 00:53 | DIS ---
ADMISSION DATE: 02/06/2017 DISCHARGE DATE: 02/10/2017 PRIMARY CARE PHYSICIAN: Dr. Le. DISCHARGE DISPOSITION: Home. PRIMARY DISCHARGE DIAGNOSES: 1. Acute Crohn's flare. 2. History of hypothyroidism. DISCHARGE MEDICATIONS: Include prednisone 40 mg daily. CODE STATUS: FULL CODE. ALLERGIES: LATEX. HOSPITAL COURSE: Ms. Reyez is a pleasant 56-year-old female who was admitted due to severe abdominal pain as well as cramping and bloody diarrhea. She has a known history of Crohn's colitis and had re cently been started on Entyvio. She was admitted and started on IV steroids. This improved her symp toms and it is expected that the Entyvio will start to be effective in the next days to weeks. She i s currently being controlled on prednisone. Lab studies for stool were sent including C. diff and Sh iga toxin and CMV. The CMV results were pending at the time of discharge, but her symptoms improved dramatically and she was subsequently discharged home and to follow up with her primary care pedro pablo velazquez in 1 to 2 weeks and [address] with Dr. Ash as instructed.
--- NOTE | 2017-02-16 08:18 | EKG ---
Test Reason : STAT CP Blood Pressure : / mmHG Vent. Rate : 050 BPM Atrial Rate : 050 BPM P-R Int : 126 ms QRS Dur : 080 ms QT Int : 486 ms P-R-T Axes : 044 046 038 degrees QTc Int : 443 ms Sinus bradycardia Otherwise normal ECG No previous ECGs available Confirmed by Manpreet VAUGHN ([id number]) on 02/16/2017 8:18:36 AM Referred By: GREGORIO MESA Confirmed By:Manpreet VAUGHN
== END 2017-02-10 19:15 | disposition home or self-care (01) | DRG 387 ==
LOC: T4-A 17:25
PROVIDERS: ADMIT Family Medicine; ATTEND Family Medicine
DX: K50.10 Crohn's disease of large intestine without complications (principal); D50.9 Iron deficiency anemia, unspecified; E03.9 Hypothyroidism, unspecified; K62.9 Disease of anus and rectum, unspecified; E66.9 Obesity, unspecified; Z68.38 Body mass index [BMI] 38.0-38.9, adult
CPT/HCPCS: 36415; 71020; 80048; 80053; 82553; 83630; 83735; 84443; 84484; 85007; 85025; 85027; 85652; 86140; 87015; 87040; 87045; 87046; 87324; 87328; 87329; 87449; 87497; 87899; 93005; 93010; A4216; J2920; J2930; J7506

== ENCOUNTER 2017-03-05 13:07 | Outpatient (CLI) | payer BC ==
[2017-03-05] MEDS ORDERED: Gadobenate Dimeglumine 529 MG/1 ML (20ML VIAL) ONE (13:59)
--- NOTE | 2017-03-05 16:37 | MRI ---
MRI OF THE ABDOMEN WITHOUT AND WITH CONTRAST: Date: 03/05/17 COMPARISON: 11/29/16. HISTORY: Crohn's disease with anal fissure and perianal fistula. Left lower quadrant abdominal pain. TECHNIQUE: Multiplanar, multisequence MR images were obtained of the abdomen without and with IV contrast. FINDINGS: There is persistent thickening of the sigmoid colon. This is relatively unchanged compared to the deondre or examination. The thickened occurs from the sigmoid colon up to the region of the junction of the l eft colon with the descending colon. There are areas of susceptibility artifact adjacent to the sigmo id colon which may represent foci of free air. Adjacent to the sigmoid colon, there is a 4.2 cm fluid collection which likely represents an abscess. This is associated with the urinary bladder wall whic h is thickened. There is also susceptibility artifact within the nondependent urinary bladder which l ikely represents air in the urinary bladder. No definite communicating fistula is seen between the si gmoid colon and the urinary bladder, but this air is a secondary sign that a fistula is likely presen t. The small bowel is normal in caliber. The terminal ileum is unremarkable without evidence of wall thi ckening. There is a small, stable cyst in the left kidney. The right kidney, liver, gallbladder, panc reas, adrenal glands, and biliary tree are unremarkable. The spleen is unremarkable. The patient has a large hiatal hernia. IMPRESSION: 1. There is inflammatory change in the sigmoid colon. This is in the location where the previously s een inflammatory change was present. However, in the interim, there has been development of a fluid c ollection between the urinary bladder and the colon which likely represents an abscess. There is also foci of susceptibility artifact within the urinary bladder and adjacent to the sigmoid colon which l ikely represents air. A fistulous communication between the sigmoid colon and the urinary bladder is likely present. 2. Hiatal hernia. 3. Left renal cyst. POS: [facility]
== END 2017-03-05 13:08 | disposition home or self-care (01) ==
LOC: MRI 13:07
PROVIDERS: ATTEND Internal Medicine Gastroenterology
DX: K50.90 Crohn's disease, unspecified, without complications (principal); K60.2 Anal fissure, unspecified; B37.9 Candidiasis, unspecified; N28.1 Cyst of kidney, acquired; K44.9 Diaphragmatic hernia without obstruction or gangrene; K63.89 Other specified diseases of intestine
CPT/HCPCS: 74183; A9579; J1610

== ENCOUNTER 2017-03-06 10:35 | Inpatient (IN) | payer BC ==
[2017-03-06 11:17] VITALS: BMI 35.9
[2017-03-06 11:50] LABS: Hematocrit 42.9 % (36.0-47.0); Mean Platelet Volume 7.6 fL (7.4-10.4); Red Blood Cell (RBC) Count 4.62 mill/uL (4.20-5.40); White Blood Cell (WBC) Count 19.5 thou/uL (4.8-10.8)
[2017-03-06 12:13] LABS: ALT (SGPT) 12 U/L (8-55); AST (SGOT) 9 U/L (5-34); Alkaline Phosphatase 78 U/L (40-150); Anion Gap 15 mmol/L (10-20); BUN (Urea Nitrogen) 13 mg/dL (9.8-20.1); Bilirubin, Total 0.7 mg/dL (0.2-1.2); Calc. Creatinine Clearance 107 mL/min (70-130); Calcium 9.3 mg/dL (7.8-10.44); Carbon Dioxide 26 mmol/L (22-29); Chloride 97 mmol/L (98-107); Estimated GFR-MDRD 68; Globulin 3.2 g/dL (2.4-3.5); Protein, Total 6.7 g/dL (6.0-8.3)
[2017-03-06] MEDS: metroNIDAZOLE 500 MG in Premix Bag 1 BAG IVPB SCH ×2 (12:38→20:22)
[2017-03-06 12:55] LABS: Band 16 % (5-11); Neutrophil 77 % (42-75)
[2017-03-06] MEDS ORDERED: Ondansetron HCl/PF 4 MG/2 ML Vial SLOW IVP PRN (17:38)
[2017-03-06] MEDS ORDERED: Fentanyl 100 MCG/2 ML VIAL SLOW IVP PRN (17:39)
[2017-03-06] MEDS: Sodium Chloride 0.9% 1,000 ML IV SCH (17:54)
--- NOTE | 2017-03-06 18:53 | CON ---
DATE OF CONSULTATION: 03/06/2017 REFERRING PHYSICIAN: Dandre Ash M.D., [facility]. CHIEF COMPLAINT: Colovesical fistula. HISTORY OF PRESENT ILLNESS: This is a 56-year-old female with a history of Crohn's, kind of a compli cated history, but has previously seen a surgeon in [place] where she was found to have potentially r ectal, low colon changes as well as perianal changes that were previously thought to be hidradenitis, but now thought to be perianal Crohn's,, started on medicine for that as an outpatient. Has had dany e fevers that have brought her in for workup several times in the last 6 months. Now MRI today reve als a fluid collection between her sigmoid colon and her bladder. She is also having brown colored u rine with passing some air. Admitted to the hospital by Dr. Ash, placed on Levaquin and Flagyl. T he patient denies pain, no fevers today, no real significant blood in stool. PAST MEDICAL HISTORY: Includes Crohn's, hypothyroidism. PAST SURGICAL HISTORY: Ectopic , C-sections, carpal tunnel, tonsillectomy. MEDICINES: At home prednisone, Entyvio, and Synthroid. ALLERGIES: She is allergic to LASIX. FAMILY HISTORY: Significant for a mother with inflammatory bowel disease, but no GI malignancies or anesthetic related complications. REVIEW OF SYSTEMS: Ten system review of systems otherwise negative unless described above. PHYSICAL EXAMINATION: VITAL SIGNS: Blood pressure 107/73, pulse 78, respirations 20. She is afebrile. HEENT: Sclerae are anicteric. Oropharynx clear. NECK: No lymphadenopathy. CHEST: Clear. HEART: Regular rate and rhythm. ABDOMEN: Soft, minimally tender in the lower abdomen, but no guarding or rebound. Well-healed low t ransverse Pfannenstiel incision. LABORATORY DATA: MRI results reviewed showing a fluid collection between the colon and the bladder. Sodium 134, potassium 3.8, creatinine is 0.86. White cell count is 19, hemoglobin 14, platelet coun t is 303. ASSESSMENT: History of Crohn's disease, but now with a colovesical fistula, cannot rule out chronic or active diverticulitis, fairly asymptomatic. PLAN: Dr. Ash will do flex sig tomorrow to evaluate her colon proximal and distal to this area. I could plan a definitive resection next week plus or minus bladder repair, plus or minus ileostomy v ersus colostomy. She has also already seen a colorectal surgeon in [place] and she has the option to see them as well. I do not think this is an emergency, she will likely cool off after a few days of IV antibiotics and we can either do the surgery here earlier in the week or she can be transitioned to an outpatient to see them in [place]. We will follow with you.
[2017-03-06] MEDS: Zolpidem Tartrate 5 MG TAB PO SCH (20:23)
[2017-03-06 20:57] LABS: Bilirubin Negative (Negative); Blood, Urine Moderate (Negative); Glucose, Urine (Dipstick) Negative (Negative); Ketone, Urine Negative (Negative); Nitrite Negative (Negative); Protein, Urine (Dipstick) Trace mg/dL (Neg-Trace); Urobilinogen 0.2 mg/dL (0.2-1.0)
[2017-03-06 20:59] LABS: Bacteria/HPF Rare-Few HPF (None Seen); Hyaline Casts/LPF 0-3 HYALINE CAST LPF (0-3 Hyaline); Squamous Epithelial None Seen HPF (0-3)
[2017-03-06] MEDS ORDERED: Metoprolol Tartrate 25 MG TAB PO SCH (21:00)
--- NOTE | 2017-03-07 01:29 | HP ---
REASON FOR ADMISSION: Abdominal abscess with possible fistula from the sigmoid colon to the bladder. HISTORY OF PRESENT ILLNESS: Ms. Reyez is a 56-year-old female, who was diagnosed with Crohn's disecolt wong in 2014 by colorectal surgeon in [place], this is based on a problem with anal fissures and fistula s. Prior to that diagnosis, she had been told she had hidradenitis suppurativa. She came to see me and we initially recommended starting TNF inhibitors with perianal disease, but she refused that and opted for immuno-modulator. She started 6-MP, but that made her feel bad and she ultimately stopped it. I did not see her for some time and she was taking 5-ASAs intermediately when she returned in [facility] of 2016 when she was having increasing diarrhea and bleeding. C. diff was negative. Empirical ly she was on some antibiotics and wanted to start Remicade. However, insurance preferred Humira and that was all we can get improved and that was started in April. In May, she felt she was getti ng better, but later in the summer, she had flaring of symptoms. A colonoscopy was performed in late September with inflammation and ulceration in the rectum, sigmoid colon, and brawny edema throughout the sigmoid colon. Decision was made to stop the Humira and move on to Entyvio. She had gone up to [place] on a weekly basis, still have very good response. She will be given IV iron secondary to the anem ia developed with her colitis. MRI enterography was ordered, which she did not perform until early , which showed thickening of the sigmoid colon, rectum, and the junction of sigmoid colon, le ft colon with pericolonic fluid, and colon thickening. Looking back to the notes from the office, terrell wong actually had stopped her Humira on her own around that time and the Entyvio was not restarted until early December. She had low grade fevers; on prednisone, levofloxacin, and metronidazole. She had a bone scan showing some osteopenia. She got Hepatitis B and C antibodies, which were negative. Jeremy tiFERON was negative. Histoplasmosis urine antigen B were negative. She was admitted to the [facility] on 12/11/2016 and had a CAT scan of abdomen and pelvis that just showed some inflammatory stranding , but it is unclear if this is related to her Crohn's or diverticular disease. It was felt to be [employer] [facility]'s related as she has had a poor response to Humira for several months despite dose escalation and really not been on any therapy for some time, which she stopped that before starting the Entyvio. Ul timately with antibiotics and steroids, she defervesced. We got her starting the Entyvio as an outpa tient in early December. In mid-January, she came back to the hospital for abdominal pain, diarrhea, and fever up to 102 at home. She was placed on antibiotics. She was not re-scanned at that time. She had high sed rate and CRPs at that time. She was placed back on a steroid taper and antibiotics. Stool studies were negativm really had minimal diarrhea, no fever in the hospital, and was discharg ed home. More recently, she came back to my office after completing a complete loading dose of the E ntyvio noting that she felt she was possibly having air coming from the vaginal area. She had MRI ye sterday, which showed air in the bladder. She has a small fistula in the right inguinal region. Int erestingly her perianal disease is completely resolved on rectal exam, but CAT scan showed a 4 cm abs cess in the left lower quadrant adjacent to the colon sitting on top of the dome of the bladder. She was admitted for IV antibiotics and surgical consultation. PAST MEDICAL HISTORY: 1. Crohn's colitis recurrent flares with intermittent compliance with therapy. 2. Hypothyroidism, on replacement therapy. PAST SURGICAL HISTORY: Ectopic , previous salpingo-oophorectomy, section, carpal t unnel surgery, post-tonsillectomy. MEDICATIONS: Entyvio infusions, prednisone outpatient setting 40 mg tapering, metoprolol. She is al so on Flagyl 500 mg p.o. t.i.d. for the past couple of weeks and levofloxacin 500 mg daily as well as Synthroid 100 mcg daily. She is on prednisone 50 mg a day. PHYSICAL EXAMINATION: VITAL SIGNS: Temperature max 99, pulse 79, blood pressure 108/76. LUNGS: Clear. HEART: Regular rate and rhythm without clicks or murmurs. ABDOMEN: Soft with tenderness in the left lower quadrant and some firmness in the suprapubic area. There is no rebound. There is no guarding. RECTAL: Exam in my office yesterday showed no evidence of perianal fistulas or fissures. There is s ome hypertrophic anal papillae but nothing bad. There is a little bit of drainage of left inguinal a pelon, but no tract was palpated, no feculent material came through here, just a little bit of blood an d light mucus. Bimanual exam showed no overt masses or feculent material in the vaginal area. The CT scan and MRI reviewed with radiology. LABORATORY STUDIES: White count 19,000, hemoglobin 14, and platelet count 303. Sodium is 134, potas sium 3.8. Electrolytes normal, otherwise, BUN 13, creatinine 0.89. Liver function tests normal. C- reactive protein on 02/19/2017 was 11. Sed rate on 02/19/2017 was 40. ASSESSMENT: This is a 56-year-old female with history of perianal Crohn's disease and left-sided Cr ohn's disease, who was slow to adopt therapy. Ultimately earlier this year, started on Humira withou t response, the dose was increased, still no response and active disease endoscopically and radiograp hically. She was changed to Entyvio in early December. She has finished infusion of induction doses. Perianal disease has responded, however, she has had persistent inflammation and thickening in the sigmoid colon since September of this year. Now, she has what appears to be a pericolonic abscess and fis asif to the bladder. Differential diagnosis includes complications of Crohn's or possibly diverticul ar disease as she has known diverticular disease. The difficulty is that this is exact where the [employer] [facility]'s has been in the past. PLAN: Admission to the hospital for IV antibiotics. We will review CT imaging studies to see if eduardo s is amenable to radiographic drainage in light of immunosuppression and will have General Surgery co nsult. There is some option of her seeing colorectal surgeon in [place] if she has seen one there be fore, but this would really I think need to determined after we fully evaluate and assess .
[2017-03-07] MEDS: metroNIDAZOLE 500 MG in Premix Bag 1 BAG IVPB SCH ×3 (03:33→20:30)
[2017-03-07 05:37] LABS: #Lymphocytes 0.4 thou/uL (1.20-3.40); #Monocytes 0.2 thou/uL (0.11-0.59); #Neutrophils 6.6 thou/uL (1.40-6.50); %Basophils 0.5 % (0.0-1.0); %Eosinophils 0.5 % (0.0-10.0); %Lymphocytes 5.1 % (21.0-51.0); %Monocytes 3.3 % (0.0-10.0); Hematocrit 36.4 % (36.0-47.0); Mean Platelet Volume 7.5 fL (7.4-10.4); White Blood Cell (WBC) Count 7.3 thou/uL (4.8-10.8)
[2017-03-07] MEDS: Sodium Chloride 0.9% 1,000 ML IV SCH ×2 (06:22→17:24)
--- NOTE | 2017-03-07 14:30 | CON ---
DATE OF CONSULTATION: 03/07/2017 REASON FOR CONSULTATION: Colovesical fistula associated with abscess and Crohn' s disease. HISTORY OF PRESENT ILLNESS: A 56-year-old who has a longstanding history of Crohn's disease with perianal fistulas and perirectal fistulas managed with various immunosuppressive regimens including Humira and more recently Entyvio who has successfully healed all the fistulas in the perirectal and perianal area , but now has developed a colovesical fistula with an abscess. The patient is scheduled for a flexible sigmoidoscopy and is receiving antimicrobial therapy with ciprofloxacin and Flagyl with thus far successful clinical improvement. No headaches, visual symptoms, sore throat, odynophagia, dysphagia, no cough or sputum production or chest pain. No back pain. Moderate left centered abdominal pain, air coming out of the bladder intermittently. No joint symptoms. No skin disorder. PAST MEDICAL HISTORY: Crohn's disease with irregular adherence to treatment, hypothyroidism, and prior dog bite. PAST SURGICAL HISTORY: Salpingo-oophorectomy, , carpal tunnel surgery , ectopic , tonsillectomy. MEDICATIONS: Entyvio, prednisone 40 mg in a tapering phase, metoprolol, has been intermittently on Flagyl and Cipro or levofloxacin for not more than 2 weeks at a time, and Synthroid. ALLERGIES: LATEX. PHYSICAL EXAMINATION: VITAL SIGNS: T-max 99.3. She is now 97.9. Other vital signs are normal. SKIN: With no areas of skin breakdown. Peripheral IV access. No Zamudio catheter. HEENT: Ocular movements are conjugate. Nasal passages patent. Oral cavity normal. NECK: Supple. LUNGS: With symmetric clear breath sounds. HEART: S1, S2, regular rate. No S3 or S4, no murmurs. ABDOMEN: Soft. Mild tenderness in left lower quadrant, no distention, no peritoneal signs, no evidence of ascites, no organomegaly. EXTREMITIES: No joint inflammatory activity. Pulses are 1+ in dorsalis pedis. Plantar responses are flexor. Strength in upper and lower extremities is preserved. NEUROLOGIC: Cognitive function appears to be intact. LABORATORY DATA: White cell count 19.5 and now 7.3, hemoglobin 14 and 11, MCV 92, platelet is 206, 90% neutrophils. Sodium 134, creatinine 0.86 and normal liver profile. CRP 9.83, albumin 3.5 and WBC count greater than 50, have numerous negative C. diff tests. Blood cultures negative from 02/06/2017. Imaging studies included abdomen and pelvis CT from 12/11/2016, which showed stable stranding changes and thickening and wall sigmoid colon. There is a path specimen from September of this year with unremarkable duodenal mucosa and unremarkable stomach mucosa, large intestine with chronic mildly active colitis , large intestine, moderate colitis, no malignancy. There is an abdomen MRI done this time, which shows inflammatory change in sigmoid colon, development of fluid collection between urinary bladder and colon, likely abscess with suspected fistulous communication. ASSESSMENT: Crohn's colitis with colovesical fistula. DISCUSSION: There is apparent clinical response to Cipro and Flagyl, ciprofloxacin covers about 70% of the gram-negative rods, will miss a few Streptococci. Flagyl covers pretty much all anaerobes. The intention is for patient to undergo resection of the diseased segment with repair of the bladder down the road, plus an ostomy placement for diversion. It looks like she will be able to be converted to oral Cipro and Flagyl and continue for about 3-4 weeks. During the procedure, then sampling to be obtained for cultures. She might develop recrudescence of inflammatory process due to the selection of resistant pathogens. May have to be converted to IV carbapenem depending on clinical progress. JUDYD
[2017-03-07] MEDS ORDERED: Promethazine HCl 25 MG/ML VIAL IM PRN (15:32)
[2017-03-07] MEDS ORDERED: Ondansetron HCl/PF 4 MG/2 ML Vial IVP PRN (15:32)
[2017-03-07] MEDS ORDERED: Promethazine HCl 25 MG/ML VIAL SLOW IVP PRN (15:32)
[2017-03-07] MEDS ORDERED: Meperidine HCl/PF 25 MG/ML VIAL SLOW IVP PRN (15:32)
[2017-03-07] MEDS ORDERED: Lidocaine 1% PF 5 ML VIAL ONE (15:51)
[2017-03-07] MEDS ORDERED: Propofol 200 MG/20 ML VIAL ONE (15:51)
--- NOTE | 2017-03-07 18:17 | OP ---
PREOPERATIVE DIAGNOSES: 1. Colovesicular fistula. 2. Pericolonic abscess. 3. History of diverticulosis. 4. History of Crohn's disease that was not improving with Humira over the first 6 months of treatmen t beginning in 03/2016. Ultimately, she was switched to Entyvio. The clinical question is the fistu la related to Crohn's disease or diverticulitis. POSTOPERATIVE DIAGNOSES: 1. There is quite a bit of submucosal edema and erythema throughout the sigmoid colon with some exud ates most consistent with diverticulitis. There is high-grade narrowing secondary to this brawny miles ma but no obstruction. 2. The rectum is notable for healing or completely healed ulcers that had been seen in 09/2016 on co lonoscopy with marked response to Entyvio for her Crohn's. RECOMMENDATIONS: Clinical ramifications would indicate this is likely diverticulitis with diverticul ar abscess and perforation and not her Crohn's, although all to be determined at the time of surgery. I feel more comfortable about her going for operative repair and clinically, her Crohn's seems to b e much better controlled now than it was in 09/2016. PROCEDURE IN DETAIL: After the risks, benefits, and possible complications were discussed with the p atient including the risk of worsening perforation, need for emergent surgery, bleeding, informed con sent was obtained and the patient brought to endoscopy suite where she was sedated in a gradual fashi on. Once she was comfortable, a digital exam was performed. There was no evidence of perianal disea se externally. There are no fissures or tears in the anal canal or active Crohn's in the anal canal. The endoscope was advanced through the anal canal through the colon, the sigmoid colon up through t his area to normal colon above it. There was some brawny edema, extrinsic compression, and submucosa l edema in the sigmoid colon. Biopsies were taken throughout this area. There were some exudates th ere, but no deep ulcers, erosions, or signs of active Crohn's or colitis. In the rectum, the previou sly noted ulcers that have been seen in 09/2016 were noted to be almost completely healed and very sh allow with a healed mucosa over them. Biopsies were taken of these areas to rule other infectious et iologies, although previous labs have been negative for histoplasmosis and CMV. The scope was remove d. The patient tolerated the procedure well with no complications.
[2017-03-07] MEDS: Zolpidem Tartrate 5 MG TAB PO SCH (20:30)
[2017-03-08] MEDS: Sodium Chloride 0.9% 1,000 ML IV SCH ×2 (00:48→05:01)
[2017-03-08] MEDS: metroNIDAZOLE 500 MG in Premix Bag 1 BAG IVPB SCH ×3 (05:01→20:47)
[2017-03-08] MEDS: Levothyroxine Sodium 100 MCG TAB PO SCH (05:01)
[2017-03-08] MEDS: predniSONE 5 MG TAB PO SCH (08:39)
[2017-03-08] MEDS: Metoprolol Tartrate 25 MG TAB PO SCH (08:40)
[2017-03-08] MEDS ORDERED: Dicyclomine 10 MG CAP PO PRN (11:01)
[2017-03-08] MEDS: Acetaminophen 325 MG TAB PO PRN ×2 (11:20→17:46)
--- NOTE | 2017-03-08 14:48 | PRG ---
DATE OF SERVICE: 03/08/2017 SUBJECTIVE: Ms. Reyez feels good. She has little bit more left lower quadrant pain today after tryi ng to eat. She has had no fever that she knows of. Her urine does have particulate matter in it. S he did not have any problems with pain after limited sigmoidoscopy yesterday. MEDICATIONS: Prednisone 50 mg daily, Zofran p.r.n., Flagyl 100 mg IV q.8 hours, levothyroxine 100 mc g daily, metoprolol 25 mg daily, levofloxacin 500 mg IV daily. PHYSICAL EXAMINATION: VITAL SIGNS: Temperature is 98.2, pulse 86, blood pressure is 141/85. LUNGS: Clear. HEART: Regular rate and rhythm without clicks or murmurs. ABDOMEN: Soft, nontender, without any palpable hepatosplenomegaly. There is some mild left lower qu adrant tenderness and some fullness. LABORATORY DATA: No labs today. ASSESSMENT: Crohn disease, endoscopically perianal disease and rectal disease seems to be healing an d good response to Entyvio, which she finished induction just last month. Her next infusion will be in early April or late March. As far as her inflammation in the sigmoid colon, I am starting to think this is more diverticular in nature, although definitely rule out Crohn's and we will know that until at the time of surgery and m ay not know it for sure then, but she does have a fistula to the bladder and that is for certain. Sh e shows no signs of sepsis. She has a small abscess in the area as well. PLAN: We will continue IV Flagyl and Levaquin and stop her IV fluids today. If she continues to be febrile and does not have excessive pain, we will plan for discharge tomorrow on oral regimen and she is contemplating surgery either next week here with Dr. Salvador or with her colorectal surgeon in [facility]. We will facilitate either one once she makes a final decision. We will discuss with Dr. Fabiana andino. Question of draining the abscess is present, seen on MRI the day before admission.
[2017-03-08] MEDS: Zolpidem Tartrate 5 MG TAB PO SCH (20:47)
[2017-03-09] MEDS: Levothyroxine Sodium 100 MCG TAB PO SCH (05:10)
[2017-03-09] MEDS: metroNIDAZOLE 500 MG in Premix Bag 1 BAG IVPB SCH ×2 (05:12→11:57)
[2017-03-09] MEDS: predniSONE 5 MG TAB PO SCH (08:36)
[2017-03-09] MEDS: Metoprolol Tartrate 25 MG TAB PO SCH (08:37)
[2017-03-09] MEDS: Acetaminophen 325 MG TAB PO PRN (08:39)
[2017-03-09 12:15] VITALS: BP 115/82; TEMP 98
--- NOTE | 2017-03-09 16:07 | DIS ---
DATE OF ADMISSION: 03/06/2017 DATE OF DISCHARGE: 03/09/2017 ADMITTING DIAGNOSES: 1. Sigmoid abscess with suspected colovesicular fistula based on outside MRI. 2. Leukocytosis. PROCEDURE: Flexible sigmoidoscopy with biopsy. CONSULTATIONS: Dr. Salvador of General Surgery and Dr. Stacy of Infectious Disease. DISCHARGE DISPOSITION: To home on Tylenol, Bentyl p.r.n. for pain, Levaquin 500 mg p.o. daily, Flagy l 500 mg t.i.d. She will continue Lopressor 25 mg daily, Synthroid 100 mcg a day, prednisone tapered to 10 mg daily. FOLLOWUP: She is to follow up with Dr. Salvador to arrange surgery for Friday, this next week. Radha wong has my phone number if she has any problems or complications in the meantime. Diet prescribed was low residue. She is to contact Dr. Salvador's office regarding bowel preparation for surgery. HOSPITAL COURSE: Ms. Reyez was admitted to the hospital after having MRI the day before that showed an abscess 4 cm in right lower quadrant communication to the bladder. She has had difficulty with pe rianal left-sided Crohn's disease. More recently had been in the hospital with fever and thickening of the sigmoid colon which was felt related to Crohn's versus diverticular disease. She has improved in the past with antibiotics, but day before admission, she came to the office with symptoms of pneu maturia and feculent material in the urine. An MRI was performed which showed the above findings. S he was admitted to the hospital and started on IV antibiotics. She had a white count of 19,000, subs equently came down to 7.3. Hemoglobin was stable at 14 to 11 which is around her baseline. Platelet s were normal. Electrolytes were all normal. She underwent flex sig in the next day to determine wh ether or not this seemed to be more Crohn's and complications of Crohn's disease or possibly divertic ular disease. The endoscopy showed that the inflammation in the rectum was markedly improved from previous endoscop y in September of this year with almost all the ulcers healed in the rectum. There was no perianal diseas e. The sigmoid colon had mucosal erythema, submucosal edema, and brawny edema, and was felt that the re was a very good chance, this is all with the complication of diverticulitis. She has been known t o have diverticular disease throughout the colon. Consultations were obtained with Infectious Disease who agree with antibiotic regimen. We discussed draining the abscess, but it seemed to spontaneously draining into the bladder. Dr. Salvador saw her and has scheduled her for surgery this coming Friday in 3 days. She has done well with the antibi otics. We have taken off stress dose steroids and resumed her slow steroid taper. She is doing well with no fever or chills, eating well and voiding, and she will be discharged home with the above not ed plan.
== END 2017-03-09 14:50 | disposition home or self-care (01) | DRG 394 ==
LOC: SURG B 10:35
PROVIDERS: ADMIT Internal Medicine Gastroenterology; ATTEND Internal Medicine Gastroenterology
PROC: 0DBN8ZX Excision of Sigmoid Colon, Via Natural or Artificial Opening Endoscopic, Diagnostic (ICD-10-PCS; principal; 2017-03-07)
DX: K63.2 Fistula of intestine (principal); K57.20 Diverticulitis of large intestine with perforation and abscess without bleeding; K50.90 Crohn's disease, unspecified, without complications; N30.80 Other cystitis without hematuria; D50.9 Iron deficiency anemia, unspecified; E03.9 Hypothyroidism, unspecified; D72.829 Elevated white blood cell count, unspecified; Z91.040 Latex allergy status
CPT/HCPCS: 36415; 80053; 81001; 85025; 85652; 86140; 87086; J1956; J2001; J2704; J2920

== ENCOUNTER 2017-03-31 11:15 | Outpatient (CLI) | payer BC ==
[2017-03-31 11:52] VITALS: BMI 34.3
[2017-03-31 12:59] LABS: Mean Corpuscular HGB CONC 32.2 g/dL (32.0-36.0); Mean Corpuscular Hemoglobin 30.1 pg (27.0-31.0); Mean Corpuscular Volume 93.6 fl (81.0-99.0); Mean Platelet Volume 7.5 fL (7.4-10.4); Platelet Count 434 thou/uL (130-400); RBC Distribution Width 14.4 % (11.5-14.5); Red Blood Cell (RBC) Count 3.98 mill/uL (4.20-5.40)
[2017-03-31 13:27] LABS: Hemoglobin A1c 4.8 % (4.0-6.0)
== END 2017-03-31 11:16 | disposition home or self-care (01) ==
LOC: LABBT 11:15
PROVIDERS: ATTEND Surgery
DX: Z01.812 Encounter for preprocedural laboratory examination (principal); K57.32 Diverticulitis of large intestine without perforation or abscess without bleeding
CPT/HCPCS: 83036; 85027

== ENCOUNTER 2017-03-31 11:15 | Inpatient (IN) | payer BC ==
[2017-04-01] MEDS ORDERED: cefOXitin 2 GM, Syringe 1 ML in Sterile Water 10 ML SLOW IVP SCH (11:15)
[2017-04-01] MEDS ORDERED: Hydrocortisone Sod Succ/PF 100 mg/2 ml Vial ONE (11:39)
[2017-04-01] MEDS ORDERED: Fentanyl 100 MCG/2 ML VIAL ONE ×3 (11:53→17:21)
[2017-04-01] MEDS ORDERED: Midazolam HCl 2 mg/2 ml Vial ONE ×2 (11:53→12:21)
[2017-04-01] MEDS ORDERED: Bupivacaine/Epinephrine 0.25% 30 ML VIAL ONE (11:54)
[2017-04-01] MEDS ORDERED: Dexamethasone 4 mg/ml Vial ONE (12:21)
[2017-04-01] MEDS ORDERED: HYDROmorphone 0.5 MG/0.5 ML SYRINGE ONE ×3 (14:08→18:34)
[2017-04-01] MEDS ORDERED: Bupivacaine PF 0.5% 30 ML VIAL ONE (14:59)
[2017-04-01] MEDS ORDERED: Bupivacaine HCl 0.5%/Epinephrine 1:200,000/PF 30 ml Vial ONE (14:59)
[2017-04-01] MEDS ORDERED: cefOXitin 2 GM VIAL ONE (15:00)
[2017-04-01] MEDS ORDERED: Glycopyrrolate 0.2 MG/ML 5 ML SYRINGE ONE (15:48)
[2017-04-01] MEDS ORDERED: Lidocaine 1% PF 5 ML VIAL ONE (15:48)
[2017-04-01] MEDS ORDERED: Ondansetron HCl/PF 4 MG/2 ML Vial ONE (15:48)
[2017-04-01] MEDS ORDERED: Metoprolol Tartrate 5 MG/5 ML VIAL ONE (15:48)
[2017-04-01] MEDS ORDERED: Propofol 200 MG/20 ML VIAL ONE (15:48)
[2017-04-01] MEDS ORDERED: HYDROmorphone 2 MG/ML VIAL SLOW IVP PRN (16:28)
[2017-04-01] MEDS ORDERED: Ondansetron HCl/PF 4 MG/2 ML Vial IVP PRN ×2 (16:28→18:50)
[2017-04-01] MEDS ORDERED: Promethazine HCl 25 MG/ML VIAL SLOW IVP PRN (16:28)
[2017-04-01] MEDS ORDERED: Promethazine HCl 25 MG/ML VIAL IM PRN ×2 (16:28→18:50)
[2017-04-01] MEDS ORDERED: Promethazine HCl 25 MG/ML VIAL ONE (17:16)
[2017-04-01] MEDS ORDERED: Fentanyl 100 MCG/2 ML VIAL SLOW IVP PRN ×2 (18:50)
[2017-04-01] MEDS ORDERED: hydrALAZINE 20 MG/ML VIAL SLOW IVP PRN (18:50)
[2017-04-01] MEDS: Acetaminophen 1,000 MG in Premix Bag 1 BAG IVPB SCH (20:21)
[2017-04-01] MEDS: Famotidine/PF 20 mg/2ml Vial SLOW IVP SCH (20:21)
[2017-04-01] MEDS: D5 1/2 NS w/20 mEq KCL 1,000 ML IV SCH (20:21)
[2017-04-01] MEDS: Famotidine 20 MG TAB PO SCH (20:33)
[2017-04-01] MEDS: Metoprolol Tartrate 25 MG TAB PO SCH (20:34)
[2017-04-01] MEDS ORDERED: cefOXitin 2 GM in Sodium Chloride 0.9% 100 ML IVPB SCH (22:00)
[2017-04-01 22:18] VITALS: BMI 34.3
[2017-04-02] MEDS: cefOXitin 2 GM, Syringe 1 ML in Sterile Water 10 ML SLOW IVP SCH ×2 (00:32→08:13)
[2017-04-02] MEDS: Acetaminophen 1,000 MG in Premix Bag 1 BAG IVPB SCH ×3 (02:58→14:22)
[2017-04-02] MEDS: D5 1/2 NS w/20 mEq KCL 1,000 ML IV SCH ×2 (02:58→14:23)
[2017-04-02 06:05] LABS: #Lymphocytes 1.2 thou/uL (1.20-3.40); #Monocytes 0.9 thou/uL (0.11-0.59); #Neutrophils 11.2 thou/uL (1.40-6.50); %Basophils 0.1 % (0.0-1.0); %Eosinophils 0.1 % (0.0-10.0); %Lymphocytes 8.9 % (21.0-51.0); %Monocytes 6.5 % (0.0-10.0); %Neutrophils 84.4 % (42.0-75.0); Mean Corpuscular HGB CONC 31.9 g/dL (32.0-36.0); Mean Corpuscular Hemoglobin 29.9 pg (27.0-31.0); Mean Corpuscular Volume 93.5 fl (81.0-99.0); Mean Platelet Volume 7.4 fL (7.4-10.4); Platelet Count 313 thou/uL (130-400); RBC Distribution Width 14.4 % (11.5-14.5); Red Blood Cell (RBC) Count 3.01 mill/uL (4.20-5.40); White Blood Cell (WBC) Count 13.3 thou/uL (4.8-10.8)
[2017-04-02 06:13] LABS: Anion Gap 10 mmol/L (10-20); BUN (Urea Nitrogen) 7 mg/dL (9.8-20.1); Calc. Creatinine Clearance 142 mL/min (70-130); Calcium 7.7 mg/dL (7.8-10.44); Carbon Dioxide 30 mmol/L (22-29); Chloride 100 mmol/L (98-107); Estimated GFR-MDRD Greater than 90; Glucose 159 mg/dL (70-105); Sodium 137 mmol/L (136-145)
[2017-04-02] MEDS: Levothyroxine Sodium 100 MCG TAB PO SCH (06:14)
[2017-04-02 06:23] LABS: Potassium 2.8 mmol/L (3.5-5.1)
[2017-04-02] MEDS: Famotidine/PF 20 mg/2ml Vial SLOW IVP SCH ×2 (08:13→20:14)
[2017-04-02] MEDS: Famotidine 20 MG TAB PO SCH ×2 (08:14→20:14)
[2017-04-02] MEDS: Metoprolol Tartrate 25 MG TAB PO SCH ×2 (08:14→20:15)
[2017-04-02] MEDS ORDERED: Potassium Chloride 40 MEQ in Sodium Chloride 0.9% 250 ML 250 ML IVPB SCH (08:15)
[2017-04-02] MEDS: Ketorolac Tromethamine 30 MG/ML VIAL IVP PRN ×2 (12:10→17:38)
[2017-04-02] MEDS ORDERED: D5 1/2 NS w/20 mEq KCL 1,000 ML IV SCH (13:33)
[2017-04-02 14:04] LABS: Hemoglobin 9.2 g/dL (12.0-16.0)
--- NOTE | 2017-04-02 14:14 | PRG ---
DATE OF SERVICE: 04/02/2017 Postop day #1, left colectomy with ileostomy. Ms. Reyez's pain is controlled, mostly on Toradol and IV Tylenol. She has ambulated once today. OBJECTIVE: VITAL SIGNS: Blood pressure is 103/71, pulse 107, respirations 18. She is afebrile. Urine output i s adequate and clear. No blood. ABDOMEN: Distended but soft. All wounds are healing well. Ostomy is in the right lower quadrant wi th pink mucosa. LABORATORY: White blood cell count is 13, hemoglobin is 9, platelet count is 313. Sodium 137, potas sium is 2.8, creatinine is 0.62. ASSESSMENT: Postoperative day #1, left colectomy and ileostomy for colovesical fistula. Tested intr aoperative and negative. Leave Zamudio in for now. Low potassium for 40 mEq this morning. PLAN: Allow full liquids this evening if no nausea, start ostomy teaching, lower IV fluids, recheck hemoglobin this afternoon.
--- NOTE | 2017-04-02 19:01 | OP ---
DATE OF PROCEDURE: 04/01/2017 PREOPERATIVE DIAGNOSIS: Chronic left colon diverticulitis with colovesical fistula. POSTOPERATIVE DIAGNOSIS: Chronic left colon diverticulitis with colovesical fistula. PROCEDURES: 1. Laparoscopic left colectomy with low pelvic anastomosis. 2. Laparoscopic mobilization of splenic flexure. 3. Diverting loop ileostomy. SURGEON: Dimas Salvador M.D. ANESTHESIA: General. ESTIMATED BLOOD LOSS: 300 mL COMPLICATIONS: None. FINDINGS: The colon is dissected off of the dome of the bladder. The bladder was tested by filling with 300 mL of sterile water saline revealing no obvious leakage. Zamudio catheter was left in place. TECHNIQUE: The patient was taken to the operating room and laid supine on the operating room supine on the table. After general anesthetic was obtained, a Zamudio was placed. The patient was placed in lithotomy position. The abdomen was prepped and draped in a sterile fashion. Left subcostal 5-mm Op tiview trocar was placed in the usual fashion without injury. High-flow pneumoperitoneum was obtaine d. A 12-mm port was placed in the right lower quadrant and 5 mm ports were placed just to the right of the umbilicus and in the right upper quadrant. An additional 5-mm port was placed in the left low er quadrant. The patient was placed in Trendelenburg position. The small bowel was pulled up out of the pelvis. There were a few small bowel adhesions were taken down sharply pulling them away from t he dome of the bladder. The sigmoid colon was very scarred in hard and diseased from the chronic div erticulitis. This was able to be dissected bluntly off of the posterior bladder wall. Dissection wa s performed on the medial aspect of the sigmoid colon through the colon mesentery where the left uret er was found and excluded from the rest of the dissection. Dissection was taken down into the upper rectum. Circumferential dissection of the upper rectum was performed. A laparoscopic stapler was fi red across here. The mesentery for the colon was then taken using the LigaSure going up again exclud ing the ureter from the dissection, there was a small divot and severe inflammatory change in the are a of the bladder where the colon was dissected off and so 300 mL of sterile saline was injected into the bladder and under direct vision. The patient was placed in Trendelenburg position and there was no obvious leakage. There was no blood in urine and the urine cleared up after the colon was dissect ed off of the posterior bladder wall. The clamp was taken off the Zamudio and the Zamudio was left in pl stiven at the end of the procedure. The splenic flexure was then mobilized in the typical fashion using cautery. This allowed the proximal descending colon to be brought down into the pelvis under no ten trevor. The 5-mm port site in the left lower quadrant was enlarged to 4 cm and muscle splitting incisi on was made into the abdomen. A wound protector was placed. The proximal colon was able to be broug ht up its end up through this incision. A location was found for the proximal portion of the anastom osis in the proximal descending colon and in this area, a colotomy was made, the anvil with the sharp pin was passed proximally and poked out the antimesenteric surface of the colon. The colon was stap led off distal to the anvil and proximal to the colotomy. This colon specimen was sent to path for f inal diagnosis. The proximal colon was placed back down into the abdominal cavity. The Otis wound retractor was twisted and held in place using a Ania clamp and insufflation was reobtained. The ba se for the 31 EEA stapler was brought up through the anus and its sharp pin brought out on the antime senteric surface of the colon below. This was connected to the anvil from above. The stapler was ti ghtened down within the green zone and fired. Two good rings of tissue were obtained. The anastomos is was tested using air insufflation without evidence of leakage. There was no ongoing bleeding in [facility] abdomen. All instrument counts, needle counts, lap counts were correct. The 12-mm port site in [facility] right lower quadrant was closed using GraNee needle and 0 Vicryl tie. Location was found for the loop ileostomy. Ellipse of skin was taken out in the right lower quadrant and a muscle splitting cru ciate incision was made. Hume was placed in the abdomen and used to grab and pull the small bowel just proximal to the ileocecal valve at a distance of 10 cm proximal. This was brought up through [facility] cruciate incision maintaining its orientation. All ports were then removed and insufflation was l et down. The muscle splitting incision in the left lower quadrant was closed using PDS and the poste rior and anterior fascia. The GraNee needle suture was tied down in the right lower quadrant, closin g the 12-mm port site. All incisions were irrigated copiously and closed using 3-0 Vicryl, 4-0 Monoc ryl, and Dermabond. The loop ileostomy was then matured in the typical fashion using 3-0 Vicryl. An ostomy device was placed. The patient was en route to recovery in stable condition. All instrument counts, needle counts, and lap counts were correct.
[2017-04-02] MEDS: HYDROcodone/Acetaminophen 10/325 mg Tablet PO PRN (20:16)
[2017-04-02] MEDS ORDERED: Enoxaparin Sodium 40 MG/0.4 ML SYRINGE SC SCH (21:00)
[2017-04-03] MEDS: HYDROcodone/Acetaminophen 10/325 mg Tablet PO PRN ×2 (05:06→12:44)
[2017-04-03] MEDS: Levothyroxine Sodium 100 MCG TAB PO SCH (05:06)
[2017-04-03 07:48] LABS: Hemoglobin 8.5 g/dL (12.0-16.0); Mean Corpuscular HGB CONC 32.8 g/dL (32.0-36.0); Mean Corpuscular Hemoglobin 30.8 pg (27.0-31.0); Mean Corpuscular Volume 93.9 fl (81.0-99.0); Mean Platelet Volume 7.6 fL (7.4-10.4); Platelet Count 313 thou/uL (130-400); RBC Distribution Width 14.6 % (11.5-14.5); Red Blood Cell (RBC) Count 2.74 mill/uL (4.20-5.40); White Blood Cell (WBC) Count 16.5 thou/uL (4.8-10.8)
[2017-04-03] MEDS: Famotidine 20 MG TAB PO SCH ×2 (08:26→21:54)
[2017-04-03] MEDS: Famotidine/PF 20 mg/2ml Vial SLOW IVP SCH (08:27)
[2017-04-03] MEDS: Metoprolol Tartrate 25 MG TAB PO SCH (08:29)
[2017-04-03 08:55] LABS: Band 1 % (5-11); Lymphocytes 7 % (21-51); MDiff Complete? YES; Monocytes 2 % (0-10); Neutrophil 90 % (42-75)
[2017-04-03] MEDS ORDERED: Hydrocortisone Sod Succ/PF 100 mg/2 ml Vial IVP SCH ×4 (10:00→22:00)
[2017-04-03] MEDS ORDERED: D5 1/2 NS w/20 mEq KCL 1,000 ML IV SCH ×2 (11:00→12:15)
[2017-04-03] MEDS ORDERED: Sodium Chloride 0.9% 1,000 ML IV SCH (12:15)
--- NOTE | 2017-04-03 12:27 | PRG ---
DATE OF SERVICE: 04/03/2017 SUBJECTIVE: Postop day #2. Ms. Reyez had a borderline temperature overnight. Her pulses remain sli ghtly elevated since surgery. On further questioning, she says she has been on significant sterilely dose within the past year. Denies nausea. Tolerating full liquids without much difficulty. She al ready has stool in her bag, still has a Zamudio catheter. PHYSICAL EXAMINATION: VITAL SIGNS: Her pulse is 113, temperature 98.8, respirations 16, pulse oximetry is 95%, blood press ure 93/60. Urine output was 250 overnight, previously it was 500 to 600 per shift, 250 of stool alre maureen. ABDOMEN: Soft, minimally distended. All wounds are healing well. There is air and stool in the rig ht lower quadrant bag. Her urine is clear. LABORATORY DATA: White cell count today is 16, hemoglobin is 8.5, platelet count is 313. Creatinine was 0.62 yesterday. ASSESSMENT AND PLAN: 1. Postop day #2, resolving ileus. 2. Likely adrenal insufficiency, we will restart hydrocortisone, restarted Zosyn considering infecti ous count is up a little bit. She has got borderline temperatures. Need to encourage ambulation and use incentive spirometer.
[2017-04-03] MEDS ORDERED: Hydrocortisone Sod Succ/PF 100 mg/2 ml Vial ONE (12:34)
[2017-04-03] MEDS: Saccharomyces boulardii 250 MG CAP PO SCH (12:43)
[2017-04-03 13:00] LABS: Anion Gap 10 mmol/L (10-20); BUN (Urea Nitrogen) 7 mg/dL (9.8-20.1); Calc. Creatinine Clearance 139 mL/min (70-130); Calcium 7.7 mg/dL (7.8-10.44); Carbon Dioxide 27 mmol/L (22-29); Chloride 100 mmol/L (98-107); Estimated GFR-MDRD Greater than 90; Glucose 93 mg/dL (70-105); Potassium 3.2 mmol/L (3.5-5.1); Sodium 134 mmol/L (136-145)
--- NOTE | 2017-04-03 13:46 | PDOC.EVN ---
Event Note - Event Note Event Note: Called by RN due to low BP. Patient denies increased pain, nausea or vomitting. Pulse 116 but BP 79/56. Further history reveals patient on prednisone 40 mg a day up until mid February of 2017. She had stress dexamathasome intraoperatively but no steroids since. Her hgb is 8.5. Urine is still clear and she has adequate uop. Will bolus 1 liter NS. Type and cross and transfuse 2 units prbcs. Ordered hydrocortisone 100 mg now then 50 mg every 8 hours.
[2017-04-03] MEDS: Piperacillin/Tazobactam 3.375 GM in Sodium Chloride 0.9% 100 ML IVPB SCH ×3 (14:03→23:40)
[2017-04-03] MEDS: D5 1/2 NS w/20 mEq KCL 1,000 ML IV SCH (18:18)
[2017-04-03] MEDS: Hydrocortisone Sod Succ/PF 100 mg/2 ml Vial IVP SCH ×2 (18:20→23:40)
--- NOTE | 2017-04-03 19:59 | RAD ---
PORTABLE CHEST ONE VIEW 04/03/17 at 6:47 p.m. HISTORY: Sepsis. FINDINGS/IMPRESSION: There is a small patchy infiltrate/consolidation in the left lateral lung base. No pneumothoraces or yannick pulmonary edema is seen. A small left effusion may be present. POS: [facility]
--- NOTE | 2017-04-03 20:26 | PRG ---
DATE OF SERVICE: 04/03/2017 SERVICE: Pulmonary Medicine. REASON FOR CONSULTATION: Marginal blood pressures. HISTORY OF PRESENT ILLNESS: The patient is a 56-year-old white female with past medical history sign ificant for Crohn's disease. This is actually under fairly decent control. She had multiple episode s of diverticulitis that were successfully treated intermittently with antibiotics, but her fever pro file had always returned. At one point, she started passing air out of different area. A chronic di verticulitis with colovesicular fistula were suspected. The patient went down for an elective laparo jailyn requiring a left colectomy and low pelvic anastomosis. She also underwent a diverting ileostomy . During the procedure, an abscess lesion was identified. This was subsequently irrigated and evacu ated. There were multiple tissue planes that had to be meticulously dissected across. She is curren tly postoperative day #2 from this procedure. During the procedure, she had a stress dose of steroid s because she was on chronic prednisone on and off in the outpatient setting for the past 4 months. Over the past 2 days, she has recovered very nicely clinically though her blood pressures have been a little bit more marginal. She got multiple boluses of fluids and antibiotics were initiated. The p atient is clear, calm, and collected. She is absolutely in no respiratory distress. She indicates t hat her blood pressures typically run with a systolic of 110. She has been making excellent urine an d she has absolutely no signs of end organ damage at this time. Stress doses of steroids have alread y been restarted. Her abdominal discomfort is what she expects for postop day #2 procedure. She is tolerating p.o. and putting plenty out from her ostomy. PAST MEDICAL HISTORY: 1. Crohn's colitis. 2. Hypothyroidism. PAST SURGICAL HISTORY: 1. Excision of ectopic . 2. Previous salpingo-oophorectomy. 3. section. 4. Carpal tunnel surgery. 5. Tonsillectomy. 6. Laparotomy with ileostomy formation. FAMILY HISTORY: Noncontributory. SOCIAL HISTORY: Negative for significant alcohol, tobacco, or illicit drug use. She denies any curr ent exposure to chemicals, dust, asbestosis, or tuberculosis. ALLERGIES: No known drug allergies. MEDICATIONS: List of her Inpatient medications were reviewed. No specific updates were made at this time. REVIEW OF SYSTEMS: General, head, ears, eyes, nose, throat, cardiovascular, respiratory, GI, , mu sculoskeletal, neurologic, and skin is negative except as mentioned in the HPI. PHYSICAL EXAMINATION: VITAL SIGNS: Afebrile currently with a T-max overnight of 101.6. Pulse 106 and gently uptrending. Blood pressure 86/50, respirations 20, saturation 95% on room air. GENERAL: The patient is awake and alert. She is in absolutely no apparent distress. LUNGS: Excellent air entry. There is no prolonged expiratory phase, wheezing, or rhonchi. Dependen t crackles are minimal. HEART: Normal rate. Tachycardic. Regular. ABDOMEN: Soft. Minimal tenderness to palpation with no rebound or guarding. MUSCULOSKELETAL: No cyanosis or clubbing. Trace pitting in the bilateral lower extremities. NEUROLOGICAL: Nonfocal. GENITOURINARY: Zamudio catheter in place. LABORATORY DATA: WBC 16.5 and up-trending, hemoglobin 8.5, platelets 90%. Sodium 134, potassium 3.2 . Basic metabolic profile is otherwise unremarkable. Calcium 7.7. ASSESSMENT: 1. Sepsis. 2. Peritonitis, suspected from recent diverticular disease and abscess, status post laparotomy and i leostomy formation. 3. Relative adrenal insufficiency. 4. Crohn's disease. 5. Hypothyroidism. PLAN: We will continue stress doses of steroids. These will be weaned away slowly back to her home dose and she will likely need to taper off the steroids slowly three times. Agree with antibiotics c overing [place]. I will get a chest x-ray, and urinalysis as well as urine culture and blood cultur es to see if we can catch our organism. If she fails to clear her sepsis profile, antifungal medicat ions may be considered. In the meantime, we will provide her with gentle hydration at 75 mL per hour . Pulmonary and Critical Care will continue to follow until she more clearly turns the corner. I wi ll perform a lactate to make certain there is no significant evidence of end organ damage, but at thi s time, there is absolutely no apparent issue there. Her MAPs remain above 65 although she is margin al. She does seem to be tolerating her current blood pressures.
[2017-04-03 20:43] LABS: Bilirubin Negative (Negative); Blood, Urine Negative (Negative); Clarity CLOUDY (Clear); Glucose, Urine (Dipstick) Negative (Negative); Leukocyte Small (Negative); Nitrite Negative (Negative); Protein, Urine (Dipstick) 30 mg/dL (Neg-Trace); Specific Gravity, Urine 1.023 (1.002-1.036); Urobilinogen 0.2 mg/dL (0.2-1.0)
[2017-04-03 20:44] LABS: Bacteria/HPF None Seen HPF (None Seen); Hyaline Casts/LPF 0-3 HYALINE CAST LPF (0-3 Hyaline); WBC/HPF 21-50 HPF (0-3)
[2017-04-03 21:06] LABS: Transitional Epithelial 0-3 HPF (0-3)
--- NOTE | 2017-04-04 00:54 | PRG ---
DATE OF SERVICE: 04/03/2017 Ms. Reyez had a laparoscopic sigmoidoscopy yesterday that went well and talking with Dr. Salvador, she developed some fever last night up to 100.1, then 102.6 today, pulse is up to 108, blood pressure 82 /52. She says she just does not feel very well. She is voiding. Urine output is 75 this morning an d she has got quite a bit in the Zamudio catheter today. LUNGS: Clear. HEART: Notable with sinus tachycardia. ABDOMEN: Soft, nontender, no rebound. The ostomy site looks good. Bowel sounds are quiescent. LABORATORY STUDIES: White count 16.5, hemoglobin is 8.5 down from 9, platelet counts 313. Sodium 13 4, potassium 3.2, BUN and creatinine are 7 and 0.36. ASSESSMENT: 1. Postoperative day #2 from sigmoid resection secondary to severe disease with perforation, possibl y from diverticulitis versus Crohn's disease. There is concern for a colovesicular fistula, but none was seen at the time of surgery. She had a diverting loop ileostomy and a left colectomy with low p elvic anastomosis, laparoscopic mobilization of the splenic flexure. 2. Today, she is hypotensive. Her hemoglobin had not dropped much. She has been tachycardic and hilario s had fever. Differential diagnosis includes sepsis related to surgery, adrenal insufficiency. Anot her concern would be pulmonary embolus in light of her chronic inflammation over the last several mon ths. I agree with Dr. Barton's introduction of antibiotics and hydrocortisone. Jonny has been hel d with a drop in hemoglobin and tachycardia. I will talk about reinstituting that and whether or not she has rapid improvement here, that we get a CT angio.
[2017-04-04 04:20] LABS: #Lymphocytes 0.9 thou/uL (1.20-3.40); #Monocytes 0.6 thou/uL (0.11-0.59); #Neutrophils 15.9 thou/uL (1.40-6.50); %Basophils 0.1 % (0.0-1.0); %Eosinophils 0.2 % (0.0-10.0); %Lymphocytes 4.9 % (21.0-51.0); %Monocytes 3.2 % (0.0-10.0); %Neutrophils 91.7 % (42.0-75.0); Mean Corpuscular HGB CONC 32.4 g/dL (32.0-36.0); Mean Corpuscular Hemoglobin 30.2 pg (27.0-31.0); Mean Corpuscular Volume 93.2 fl (81.0-99.0); Mean Platelet Volume 7.5 fL (7.4-10.4); Platelet Count 307 thou/uL (130-400); RBC Distribution Width 14.5 % (11.5-14.5); White Blood Cell (WBC) Count 17.3 thou/uL (4.8-10.8)
[2017-04-04 04:33] LABS: Anion Gap 8 mmol/L (10-20); BUN (Urea Nitrogen) 9 mg/dL (9.8-20.1); Calc. Creatinine Clearance 146 mL/min (70-130); Calcium 8.1 mg/dL (7.8-10.44); Carbon Dioxide 30 mmol/L (22-29); Chloride 104 mmol/L (98-107); Estimated GFR-MDRD Greater than 90; Glucose 134 mg/dL (70-105); Magnesium 1.7 mg/dL (1.6-2.6); Potassium 4.5 mmol/L (3.5-5.1); Sodium 137 mmol/L (136-145)
[2017-04-04] MEDS: Hydrocortisone Sod Succ/PF 100 mg/2 ml Vial IVP SCH ×2 (05:50→12:02)
[2017-04-04] MEDS: D5 1/2 NS w/20 mEq KCL 1,000 ML IV SCH (05:50)
[2017-04-04] MEDS: Piperacillin/Tazobactam 3.375 GM in Sodium Chloride 0.9% 100 ML IVPB SCH ×2 (05:50→12:02)
[2017-04-04] MEDS: Levothyroxine Sodium 100 MCG TAB PO SCH (05:50)
[2017-04-04] MEDS ORDERED: HYDROcodone/Acetaminophen 10/325 mg Tablet PO PRN (08:11)
[2017-04-04] MEDS: Saccharomyces boulardii 250 MG CAP PO SCH (08:16)
[2017-04-04] MEDS: Famotidine 20 MG TAB PO SCH ×2 (08:16→20:41)
--- NOTE | 2017-04-04 09:43 | PRG ---
DATE OF SERVICE: 04/04/2017 SUBJECTIVE: Ms. Reyez feels much better today. She feels like she has more energy and wants to get up and walk more. No nausea. Tolerated the full liquid diet for dinner without difficulty. She is afebrile now. OBJECTIVE: VITAL SIGNS: Stable, blood pressure 100/67, her pulse is down to 74. GENITOURINARY: Urine output remains excellent and brisk. ABDOMEN: Soft. All incisions are healing well. She has stool in her bag. LABORATORY DATA: White blood cell count is 17, hemoglobin 10, creatinine 0.6. ASSESSMENT: 1. Postop day #3 left colectomy for colovesical fistula with ileostomy. 2. Adrenal insufficiency, resolving. PLAN: Cystogram today, then can remove her catheter. One more day of full liquids. Potentially, ho me tomorrow.
--- NOTE | 2017-04-04 11:45 | RAD ---
FLUOROSCOPIC CYSTOGRAM: Date: 04/04/17 CLINICAL HISTORY: Prior colovesical fistula with surgical repair. TECHNIQUE/FINDINGS: Informed consent was obtained from the patient. The patient was escorted to the procedure suite. The patient's urinary catheter was accessed and attached to tubing which contained radiopaque contrast, i nstilled with low pressure gravity. Retrograde instillation of the urinary bladder reveals an early f illing defect related to an insufflated urinary catheter balloon. The adequately distended urinary bl adder reveals no abnormal leakage of contrast. The contour of the urinary bladder is grossly unremark able. There is urinary contaminate which leaks about the catheter distal to the distal aspect of the female urethra. IMPRESSION: No abnormal leakage of contrast demonstrated from the urinary bladder under real-time fluoroscopy. POS: [facility]
[2017-04-04] MEDS ORDERED: ISOVUE-370 76%-LOCM 1 ML ONE (12:24)
[2017-04-04] MEDS: HYDROcodone/Acetaminophen 10/325 mg Tablet PO PRN ×2 (15:36→19:41)
[2017-04-04] MEDS: Ketorolac Tromethamine 30 MG/ML VIAL IVP PRN (15:39)
[2017-04-04] MEDS ORDERED: Magnesium Sulfate 3 GM in Sodium Chloride 0.9% 100 ML IVPB SCH (17:00)
[2017-04-04] MEDS ORDERED: Sodium Phosphate 30 MMOL in Sodium Chloride 0.9% 250 ML 250 ML IVPB SCH ×2 (17:00→17:15)
--- NOTE | 2017-04-04 17:09 | PRG ---
DATE OF SERVICE: 04/04/2017 SERVICE: Pulmonary Medicine. INTERVAL HISTORY: The patient is doing fine from a cardiovascular and respiratory standpoint. She i s breathing comfortably. She has no complaints of fevers, chills, nausea, or vomiting. Her belly pa in is at baseline. She is tolerating p.o. and is not experiencing any diarrhea. She has good output from her ostomy. Otherwise, there has been no significant change to her condition. Her blood press ures have firmed up very nicely. She remains weak, but is slowly improving. PHYSICAL EXAMINATION: VITAL SIGNS: Afebrile, pulse 98, blood pressure 111/77, respirations 16, saturation 95% on room air. GENERAL: The patient is awake, alert, in no apparent distress. LUNGS: Excellent air entry with no prolonged expiratory phase, wheezing, rhonchi, or crackles. HEART: Normal rate, regular. ABDOMEN: Soft, nontender, nondistended. Bowel sounds are positive. MUSCULOSKELETAL: No cyanosis or clubbing. There is trace to 1+ pitting in the bilateral lower extre mities. NEUROLOGIC: Grossly nonfocal. LABORATORY DATA: WBC 17.3, hemoglobin 10, platelets 307,000. Potassium is 4.5. Basic metabolic pro file is otherwise unremarkable except for a phosphorus of 2. Magnesium is 1.5. INR is 1.7, bicarbon ate 30. Urine culture is negative to date. IMAGIN. Cystogram demonstrates no abnormal leakage of contrast demonstrated from the urinary bladder unde r real time fluoroscopy. 2. Chest x-ray demonstrates left-sided pleural parenchymal abnormality, possibly consistent with a s mall pleural effusion on the left. ASSESSMENT: 1. Sepsis, improving. 2. Peritonitis, suspect it from recent diverticular disease and abscess, status post laparotomy and ileostomy formation. 3. Relative adrenal insufficiency, resolved. 4. Crohn's disease. 5. Hypothyroidism. PLAN: I probably taper this patient's steroids over a protracted course. I would also empirically t reat her with antibiotics to cover a total duration of 7-10 days. She has already cleared her sepsis profile. As such, I will switch her over to p.o. medications. From a purely respiratory perspectiv e, the patient is stable for transition out of the hospital, though I think she should have a repeat chest x-ray in the outpatient setting in 4 to 6 weeks to make certain that the effusion goes away onc e her volume status improves. To that end, I will give her a dose of Lasix starting tomorrow morning . If she is still here on Friday, I will follow. Dr. Mendoza will be available during the weekend, but I am not going to ask for him to come by unless she does more poorly.
[2017-04-04] MEDS: Ciprofloxacin 500 MG TAB PO SCH (20:40)
[2017-04-04] MEDS: metroNIDAZOLE 500 MG TAB PO SCH (20:40)
--- NOTE | 2017-04-04 22:56 | PRG ---
DATE OF SERVICE: 04/04/2017 SUBJECTIVE: Ms. Reyez is feeling better today. Her heart rate dropped down to the 70s, although thi s evening 3:00 p.m. was back at 113. OBJECTIVE: VITAL SIGNS: Temperature 97. LUNGS: Clear. HEART: Regular rate and rhythm. ABDOMEN: Soft, nontender. LABORATORY STUDIES: White count today is 17,300, hemoglobin 10, platelet count 307. BUN and creatin ine are 9 and 0.6. Urine was negative. ASSESSMENT: 1. Crohn's disease on Entyvio with improvement endoscopically. 2. Recent abscess between the bladder and colon, suspected complications of diverticulitis, she is s tatus post resection and primary anastomosis with diverting ileostomy, doing well. 3. Anemia. She did receive blood yesterday and her hemoglobin has gone 10 from 8.5. 4. Adrenal insufficiency from Crohn's in the past couple of months. She had received stress test an d has responded nicely to that. Fevers, resolved. Tachycardia and hypotension have resolved. PLAN: I agree with present course of antibiotics and steroids. I think at home she can go home on 1 20 mg of prednisone as long as she does not have infection, and we can slowly taper in the outpatient setting. She is due for Entyvio in a few weeks and will continue. Plan on doing that as long as terrell wong does not have any set backs with her surgery or infection. Dr[facility] Corado [facility]. Issues discussed with Dr. Corado and Dr. Salvador.
[2017-04-05] MEDS: HYDROcodone/Acetaminophen 10/325 mg Tablet PO PRN ×4 (00:08→20:58)
[2017-04-05 04:00] LABS: #Basophils 0.1 thou/uL (0.0-0.2); #Monocytes 0.6 thou/uL (0.11-0.59); #Neutrophils 9.8 thou/uL (1.40-6.50); %Basophils 0.5 % (0.0-1.0); %Eosinophils 0.3 % (0.0-10.0); %Lymphocytes 8.7 % (21.0-51.0); %Monocytes 5.2 % (0.0-10.0); %Neutrophils 85.4 % (42.0-75.0); Hemoglobin 9.4 g/dL (12.0-16.0); Mean Corpuscular HGB CONC 32.2 g/dL (32.0-36.0); Mean Corpuscular Hemoglobin 30.2 pg (27.0-31.0); Mean Corpuscular Volume 93.9 fl (81.0-99.0); Mean Platelet Volume 7.3 fL (7.4-10.4); Platelet Count 296 thou/uL (130-400); RBC Distribution Width 14.6 % (11.5-14.5); White Blood Cell (WBC) Count 11.5 thou/uL (4.8-10.8)
[2017-04-05 04:25] LABS: Anion Gap 10 mmol/L (10-20); BUN (Urea Nitrogen) 14 mg/dL (9.8-20.1); Calc. Creatinine Clearance 160 mL/min (70-130); Calcium 8.3 mg/dL (7.8-10.44); Carbon Dioxide 28 mmol/L (22-29); Chloride 106 mmol/L (98-107); Estimated GFR-MDRD Greater than 90; Glucose 99 mg/dL (70-105); Potassium 4.1 mmol/L (3.5-5.1); Sodium 140 mmol/L (136-145)
[2017-04-05] MEDS: Ciprofloxacin 500 MG TAB PO SCH ×2 (06:09→20:58)
[2017-04-05] MEDS: Levothyroxine Sodium 100 MCG TAB PO SCH (06:09)
[2017-04-05] MEDS ORDERED: Furosemide 40 MG TAB PO SCH (07:30)
[2017-04-05] MEDS: predniSONE 20 MG TAB PO SCH (09:12)
[2017-04-05] MEDS: Saccharomyces boulardii 250 MG CAP PO SCH (09:13)
[2017-04-05] MEDS: metroNIDAZOLE 500 MG TAB PO SCH ×3 (09:13→20:58)
[2017-04-05] MEDS: Famotidine 20 MG TAB PO SCH ×2 (09:13→20:58)
--- NOTE | 2017-04-05 12:03 | PRG ---
DATE OF SERVICE: 04/05/2017 SOCIAL HISTORY: Ms. Reyez is doing well. She is tolerating a full liquid diet. She did get dizzy a fter ambulating this morning. The IV steroids have been stopped. She has been placed on 30 mg of pr ednisone a day. She has been switched from Zosyn to Cipro and Flagyl. PHYSICAL EXAMINATION: VITAL SIGNS: She is afebrile. Vital signs are stable. ABDOMEN: Soft. Ostomy is putting out stool and air. All wounds are healing well without evidence o f infection. LABORATORY DATA: White blood cell count is 11, hemoglobin is 9.4, platelet count is 296. Sodium 140 , creatinine is 0.55, potassium is 4.1. ASSESSMENT: Postoperative left colectomy, diverting ileostomy for colovesical fistula. PLAN: Home on 20 mg of prednisone tomorrow, advance to a GI soft diet today, likely home tomorrow.
--- NOTE | 2017-04-06 01:07 | PRG ---
DATE OF SERVICE: 04/05/2017 SUBJECTIVE: The patient is feeling better today with minimal suprapubic abdominal pain that is currently controlled with pain medications. No acute events or problems overnight. The patient currently denies any nausea, vomiting , fevers, chills, shortness of breath, diarrhea or constipation. OBJECTIVE: VITAL SIGNS: Temperature 97.4, pulse 79, blood pressure 93/65, respiratory rate 16, satting 97% on room air. GENERAL: The patient is lying in bed comfortably, in no acute distress. Alert and oriented x4. CARDIOVASCULAR: Regular rate and rhythm. RESPIRATORY: Clear to auscultation bilaterally. ABDOMEN: Soft, nondistended. Normoactive bowel sounds. Tenderness to palpation in the suprapubic region. LABORATORY DATA: CBC with a white blood cell count of 11.5, hemoglobin 9.4, hematocrit 29.1, platelets 296. Chemistry with a sodium of 140, potassium 4.1, chloride 106, CO2 of 28, BUN 14, creatinine 0.55, glucose 99. ASSESSMENT: The patient is a 56-year-old female with past medical history of Crohn's disease, presenting with an intra-abdominal abscess between the bladder and the colon, now status post resection and primary anastomosis with diverting ileostomy. Crohn's disease with abscess formation: The patient presenting with increased abdominal pain with imaging showing an abscess between the bladder and the colon , now status post resection of the abscess and primary anastomosis with diverting ileostomy and doing well. She did experience an episode of adrenal insufficiency due to chronic steroid use from her Crohn's disease, but has responded nicely with stress dosing steroids. Currently tolerating diet well without any problems or complaints. RECOMMENDATIONS: 1. We will continue patient on steroids. Start patient on prednisone 20 mg in anticipation of discharge. 2. The patient is due for her next infusion of Entyvio in a few weeks. 3. Can follow up in GI clinic within 2 weeks for reevaluation. EVANGELINA
[2017-04-06] MEDS: Ciprofloxacin 500 MG TAB PO SCH (06:35)
[2017-04-06] MEDS: Levothyroxine Sodium 100 MCG TAB PO SCH (06:35)
[2017-04-06] MEDS: HYDROcodone/Acetaminophen 10/325 mg Tablet PO PRN (08:22)
[2017-04-06] MEDS: Famotidine 20 MG TAB PO SCH (08:23)
[2017-04-06] MEDS: Saccharomyces boulardii 250 MG CAP PO SCH (08:23)
[2017-04-06] MEDS: metroNIDAZOLE 500 MG TAB PO SCH (08:23)
[2017-04-06] MEDS: predniSONE 20 MG TAB PO SCH (08:24)
--- NOTE | 2017-04-06 10:09 | DIS ---
DATE OF ADMISSION: 04/01/2017 DATE OF DISCHARGE: 04/06/2017 ADMITTING DIAGNOSIS: Chronic diverticulitis with colovesical fistula. DISCHARGE DIAGNOSES: Chronic diverticulitis with colovesical fistula and adrenal insufficiency. PROCEDURES: Left colectomy laparoscopic with colorectal anastomosis and diverting ileostomy by Dr. Nicole campos without complication. CONDITION AT DISCHARGE: Improved. STAFF: Dr. Dimas Salvador. DISCHARGE MEDICINES: Include [place], Zofran, prednisone, Lomotil, ostomy supplies. BRIEF HISTORY: The patient is a 56-year-old female who presents with colovesical fistula, recent col onoscopy. She had left colectomy by me on the above-mentioned date without complications. HOSPITAL COURSE: On postop day #2, the patient presented with signs of adrenal insufficiency. She w as loaded on stress dose of steroids and improved. On postop day 3, she was on a full liquid diet. On postop day #4, she had a GI soft diet. On the day of discharge, she is doing well. She is tolera ting diet without difficulty. She has good ostomy output, it was not considered high output at this time, plan is for discharge home. She has had ostomy teaching. She will start taking the Lomotil if her output becomes more liquid without any solid component. She will follow up with me in a week an d plan is for ileostomy takedown in 6 weeks.
[2017-04-06 11:51] VITALS: BP 104/72; TEMP 97.5
[2017-04-10 10:44] LABS: Actual Bicarbonate (HCO3a) 23.4 mEq/L (22-26); Base Excess (BEa) 0.1 mEq/L (0 (+/-) 2.5); Hematocrit-ABG 32.6 % (36.0-47.0); Hemoglobin (Hb) 10.3 g/dL (12.0-16.0); O2 Tension (PaO2) 116.9 mmHg (80.0-100.0); pH, Arterial 7.47 (7.35-7.45)
[2017-04-10 10:45] LABS: Analyzer IN Cardio OR; Calcium, Ionized 1.1 mmol/L (1.12-1.30); Puncture Site ALINE
== END 2017-04-06 13:25 | disposition home or self-care (01) | DRG 329 ==
LOC: SURG A 04-01 10:32 → SURG B 04-01 18:38
PROVIDERS: ADMIT Surgery; ATTEND Surgery
PROC: 0DBP4ZZ Excision of Rectum, Percutaneous Endoscopic Approach (ICD-10-PCS; principal; 2017-04-01)
PROC: 0DBN4ZZ Excision of Sigmoid Colon, Percutaneous Endoscopic Approach (ICD-10-PCS; 2017-04-01)
PROC: 0D1B4Z4 Bypass Ileum to Cutaneous, Percutaneous Endoscopic Approach (ICD-10-PCS; 2017-04-01)
PROC: 3E0T3BZ Introduction of Anesthetic Agent into Peripheral Nerves and Plexi, Percutaneous Approach (ICD-10-PCS; 2017-04-01)
PROC: 3E0T33Z Introduction of Anti-inflammatory into Peripheral Nerves and Plexi, Percutaneous Approach (ICD-10-PCS; 2017-04-01)
PROC: 30253N1 (ICD-10-PCS; 2017-04-03)
PROC: BT101ZZ Fluoroscopy of Bladder using Low Osmolar Contrast (ICD-10-PCS; 2017-04-04)
DX: K57.20 Diverticulitis of large intestine with perforation and abscess without bleeding (principal); A41.9 Sepsis, unspecified organism; N32.1 Vesicointestinal fistula; K50.914 Crohn's disease, unspecified, with abscess; E27.3 Drug-induced adrenocortical insufficiency; T81.4XXA Infection following a procedure, initial encounter; T38.0X5A Adverse effect of glucocorticoids and synthetic analogues, initial encounter; Z79.899 Other long term (current) drug therapy; E03.9 Hypothyroidism, unspecified; Z79.52 Long term (current) use of systemic steroids; D64.9 Anemia, unspecified
CPT/HCPCS: 36415; 36416; 36430; 51600; 71045; 74430; 80048; 81003; 81015; 82805; 83735; 84100; 85025; 86850; 86900; 86901; 87040; 87086; 88307; A4216; J0131; J0670; J0694; J1100; J1170; J1650; J1720; J1885; J2001; J2250; J2405; J2543; J2550; J2704; J3010; J3475; J3480; J7050; J7506; P9016; S0020; S0028

== ENCOUNTER 2017-05-26 10:52 | Outpatient (CLI) | payer BC ==
[2017-05-26 12:30] LABS: Anion Gap 12 mmol/L (10-20); BUN (Urea Nitrogen) 8 mg/dL (9.8-20.1); Calc. Creatinine Clearance 0 mL/min (70-130); Calcium 9.4 mg/dL (7.8-10.44); Carbon Dioxide 27 mmol/L (22-29); Chloride 107 mmol/L (98-107); Estimated GFR-MDRD Greater than 90; Glucose 92 mg/dL (70-105); Potassium 3.6 mmol/L (3.5-5.1); Sodium 142 mmol/L (136-145)
== END 2017-05-26 10:53 | disposition home or self-care (01) ==
LOC: LABBT 10:52
PROVIDERS: ATTEND Surgery
DX: Z01.812 Encounter for preprocedural laboratory examination (principal); K94.13 Enterostomy malfunction; K57.92 Diverticulitis of intestine, part unspecified, without perforation or abscess without bleeding
CPT/HCPCS: 80048

== ENCOUNTER 2017-05-26 11:00 | Inpatient (IN) | payer BC ==
[2017-05-26 11:24] VITALS: BMI 32.5
[2017-05-27] MEDS ORDERED: Midazolam HCl 2 mg/2 ml Vial ONE (09:33)
[2017-05-27] MEDS ORDERED: Dexamethasone 4 mg/ml Vial ONE (09:34)
[2017-05-27] MEDS ORDERED: Fentanyl 250 MCG/5 ML VIAL ONE ×3 (09:34→12:41)
[2017-05-27] MEDS ORDERED: cefOXitin 2 GM, Syringe 1 ML in Sterile Water 10 ML SLOW IVP SCH ×2 (09:45→19:00)
[2017-05-27] MEDS ORDERED: Bupivacaine/Epinephrine 0.25% 30 ML VIAL ONE (10:30)
[2017-05-27] MEDS ORDERED: Promethazine HCl 25 MG/ML VIAL IM PRN ×2 (11:45→15:53)
[2017-05-27] MEDS ORDERED: Ondansetron HCl/PF 4 MG/2 ML Vial IVP PRN ×2 (11:45→15:53)
[2017-05-27] MEDS ORDERED: Meperidine HCl/PF 25 MG/ML VIAL SLOW IVP PRN (11:45)
[2017-05-27] MEDS ORDERED: Promethazine HCl 25 MG/ML VIAL SLOW IVP PRN (11:45)
[2017-05-27] MEDS ORDERED: Promethazine HCl 25 MG/ML VIAL ONE (12:56)
[2017-05-27] MEDS ORDERED: Bupivacaine HCl 0.5%/Epinephrine 1:200,000/PF 30 ml Vial ONE (13:50)
[2017-05-27] MEDS ORDERED: Ondansetron HCl/PF 4 MG/2 ML Vial ONE (14:32)
[2017-05-27] MEDS ORDERED: Metoprolol Tartrate 5 MG/5 ML VIAL ONE (14:32)
[2017-05-27] MEDS ORDERED: PROPOFOL 200 MG/20 ML VIAL ONE (14:32)
[2017-05-27] MEDS ORDERED: Lidocaine 1% PF 5 ML VIAL ONE (14:32)
[2017-05-27] MEDS ORDERED: Glycopyrrolate 0.2 MG/ML 5 ML SYRINGE ONE (14:32)
[2017-05-27] MEDS ORDERED: Dexamethasone 20 MG/5 ML VIAL ONE (14:32)
[2017-05-27] MEDS ORDERED: Ketorolac Tromethamine 30 MG/ML VIAL ONE (14:32)
[2017-05-27] MEDS ORDERED: Morphine 10 MG/ML VIAL SLOW IVP PRN (15:53)
[2017-05-27] MEDS ORDERED: hydrALAZINE 20 MG/ML VIAL SLOW IVP PRN (15:53)
[2017-05-27] MEDS ORDERED: Morphine 2 MG/ML SYRINGE SLOW IVP PRN (16:26)
[2017-05-27] MEDS: Ketorolac Tromethamine 30 MG/ML VIAL IVP PRN ×2 (16:55→23:58)
[2017-05-27] MEDS: Sodium Chloride 0.9% 1,000 ML IV SCH (16:59)
[2017-05-27] MEDS: Acetaminophen 1,000 MG in Premix Bag 1 BAG IVPB SCH ×2 (18:25→23:54)
[2017-05-27] MEDS ORDERED: cefOXitin 2 GM in Sodium Chloride 0.9% 100 ML IVPB SCH (19:00)
[2017-05-27] MEDS: Enoxaparin Sodium 40 MG/0.4 ML SYRINGE SC SCH (21:06)
[2017-05-27] MEDS: Hydrocortisone Sod Succ/PF 100 mg/2 ml Vial IVP SCH (21:07)
[2017-05-27] MEDS: Famotidine 20 MG TAB PO SCH (21:07)
[2017-05-27] MEDS: Famotidine/PF 20 mg/2ml Vial SLOW IVP SCH (23:04)
[2017-05-28] MEDS ORDERED: Sodium Chloride 0.9% 1,000 ML IV SCH (02:15)
[2017-05-28] MEDS ORDERED: cefOXitin 2 GM, Syringe 1 ML in Sterile Water 10 ML SLOW IVP SCH (05:00)
[2017-05-28 05:31] LABS: #Lymphocytes 0.5 thou/uL (1.20-3.40); #Monocytes 0.2 thou/uL (0.11-0.59); #Neutrophils 5.2 thou/uL (1.40-6.50); %Eosinophils 0.1 % (0.0-10.0); %Lymphocytes 8.5 % (21.0-51.0); %Monocytes 2.8 % (0.0-10.0); %Neutrophils 88.6 % (42.0-75.0); Mean Corpuscular HGB CONC 31.8 g/dL (32.0-36.0); Mean Corpuscular Hemoglobin 30.6 pg (27.0-31.0); Mean Corpuscular Volume 96.4 fl (81.0-99.0); Mean Platelet Volume 9.4 fL (7.4-10.4); Platelet Count 202 thou/uL (130-400); RBC Distribution Width 13.8 % (11.5-14.5); Red Blood Cell (RBC) Count 3.91 mill/uL (4.20-5.40); White Blood Cell (WBC) Count 5.8 thou/uL (4.8-10.8)
[2017-05-28 05:40] LABS: Anion Gap 11 mmol/L (10-20); BUN (Urea Nitrogen) 9 mg/dL (9.8-20.1); Calc. Creatinine Clearance 139 mL/min (70-130); Calcium 8.7 mg/dL (7.8-10.44); Carbon Dioxide 24 mmol/L (22-29); Chloride 107 mmol/L (98-107); Estimated GFR-MDRD Greater than 90; Glucose 104 mg/dL (70-105); Sodium 138 mmol/L (136-145)
[2017-05-28] MEDS: Acetaminophen 1,000 MG in Premix Bag 1 BAG IVPB SCH ×2 (06:20→12:32)
[2017-05-28] MEDS: Levothyroxine Sodium 100 MCG TAB PO SCH (06:21)
[2017-05-28] MEDS: Hydrocortisone Sod Succ/PF 100 mg/2 ml Vial IVP SCH ×3 (06:21→20:13)
[2017-05-28] MEDS: Sodium Chloride 0.9% 1,000 ML IV SCH (07:22)
[2017-05-28] MEDS ORDERED: HYDROcodone/Acetaminophen 10/325 mg Tablet PO PRN (07:45)
--- NOTE | 2017-05-28 07:45 | PDOC.GSPN ---
Surgery Progress Note: Subj - Subjective Patient reports: tolerating liquids well Narrative: Pain controlled Surgery Progress Note: Obj - Vital signs Vital signs: Vital Signs - Most Recent Temp Pulse Resp BP Pulse Ox 98.1 F 48 L 18 112/64 94 L 05/28/17 04:53 05/28/17 00:43 05/28/17 04:53 05/28/17 04:53 05/28/17 04:53 - Physical Exam General: no distress Respiratory: clear to auscultation Abdomen: soft, non tender, nondistended Wound: dressing clean,dry,intact Surgery Progress Note: Results - Labs Result Diagrams: 05/28/17 04:18 05/28/17 04:18 Lab results: Laboratory Results - last 24 hr 05/28/17 05/28/17 04:18 04:18 WBC 5.8 RBC 3.91 L Hgb 12.0 Hct 37.7 MCV 96.4 MCH 30.6 MCHC 31.8 L RDW 13.8 Plt Count 202 MPV 9.4 Neutrophils % 88.6 H Lymphocytes % 8.5 L Monocytes % 2.8 Eosinophils % 0.1 Basophils % 0.0 Neutrophils # 5.2 Lymphocytes # 0.5 L Monocytes # 0.2 Eosinophils # 0.0 Basophils # 0.0 Sodium 138 Potassium 4.0 Chloride 107 Carbon Dioxide 24 Anion Gap 11 BUN 9 L Creatinine 0.60 Estimated GFR (MDRD) Greater than 90 Glucose 104 Calcium 8.7 Surgery Progress Note: A/P - Problem (1) Diverticula of colon Current Visit: Yes Code(s): K57.30 - DVRTCLOS OF LG INT W/O PERFORATION OR ABSCESS W/O BLEEDING Status: Acute (2) Crohn's colitis Current Visit: Yes Code(s): K50.10 - CROHN'S DISEASE OF LARGE INTESTINE WITHOUT COMPLICATIONS Status: Acute - Plan Plan: POD 1, doing well. BP/pulse low overnight, hx of adrenal insufficiency. Advance to fulls, HL IV
[2017-05-28] MEDS: Famotidine 20 MG TAB PO SCH ×2 (08:23→20:18)
[2017-05-28] MEDS: Famotidine/PF 20 mg/2ml Vial SLOW IVP SCH ×2 (08:23→20:16)
[2017-05-28] MEDS: HYDROcodone/Acetaminophen 10/325 mg Tablet PO PRN ×2 (17:48→22:43)
[2017-05-28] MEDS: Enoxaparin Sodium 40 MG/0.4 ML SYRINGE SC SCH (20:17)
--- NOTE | 2017-05-28 21:39 | OP ---
DATE OF PROCEDURE: 05/27/2017 PREOPERATIVE DIAGNOSES: 1. History of diverticulitis and colovesical fistula, status post left colectomy with diverting loop ileostomy. 2. Crohn's disease. 3. Attention to ileostomy. POSTOPERATIVE DIAGNOSES: 1. History of diverticulitis and colovesical fistula, status post left colectomy with diverting loop ileostomy. 2. Crohn's disease. 3. Attention to ileostomy. PROCEDURE PERFORMED: Ileostomy takedown with small bowel resection and anastomosis. SURGEON: Dimas Salvador MD ANESTHESIA: General. ESTIMATED BLOOD LOSS: Minimal. COMPLICATIONS: None. SPECIMEN: Small bowel. TECHNIQUE: The patient was taken to the operating room and placed supine on the table. After genera l anesthetic was obtained, a Zamudio was placed. The abdomen was prepped and draped in a sterile fashi on. The ostomy mucosa had been pursestring closed using a silk suture prior to the prep. The ileost kristine mucosa was ellipsed out with the skin around the ostomy site. Dissection was taken down on the s mall bowel all the way into the abdominal cavity. All adhesions were taken down. The small bowel wa s able to be brought up from inside the abdomen into the wound. SERGIO-75 stapler was fired across the small bowel just proximal just distal to the ileostomy. The mesentery was taken using Ania clamps a nd silk ties. The small bowel was able to be brought together in a [id number] fashion under no ten trevor. Enterotomy was made on the antimesenteric surface and a [id number] anastomosis was performed using SERGIO-75 stapler. The common enterotomy was closed transversely using a TA-60 stapler. The ent geena common enterotomy closure was oversewn using silk sutures. A crotch stitch was placed using silk suture. The mesenteric defect was closed using silk suture. The small bowel did not appear ischemi c. The anastomosis was wide open. The small bowel was placed back into the abdominal cavity. There were no posterior abdominal wall adhesions. The fascia was closed anteriorly and posteriorly using PDS suture. The wound was irrigated. 2-0 Prolene was used to pursestring the ostomy site closed. A small opening was left in the middle. Telfa nabila were placed in the opening followed by sterile dr essings. The patient is en route to recovery in stable condition. All instrument counts, needle cou nts, lap counts were correct.
[2017-05-29] MEDS: Levothyroxine Sodium 100 MCG TAB PO SCH (05:01)
[2017-05-29] MEDS: Hydrocortisone Sod Succ/PF 100 mg/2 ml Vial IVP SCH ×2 (05:01→17:51)
[2017-05-29] MEDS: HYDROcodone/Acetaminophen 10/325 mg Tablet PO PRN ×2 (07:03→13:14)
[2017-05-29] MEDS: Famotidine 20 MG TAB PO SCH (08:57)
[2017-05-29] MEDS: Famotidine/PF 20 mg/2ml Vial SLOW IVP SCH (09:00)
[2017-05-29 11:24] VITALS: BP 108/74; TEMP 97.4
--- NOTE | 2017-05-29 15:08 | DIS ---
DATE OF ADMISSION: 05/27/2017 DATE OF DISCHARGE: 05/29/2017 ADMITTING DIAGNOSES: 1. History of left colon diverticulosis and colovesical fistula. 2. History of Crohn's disease. 3. History of adrenal insufficiency. 4. Hypothyroidism. DISCHARGE DIAGNOSES: 1. History of left colon diverticulosis and colovesical fistula. 2. History of Crohn's disease. 3. History of adrenal insufficiency. 4. Hypothyroidism. PROCEDURES: Ileostomy reversal by Dr. Salvador without complication. CONDITION AT DISCHARGE: Stable. STAFF: Dr. Dimas Salvador. HOSPITAL COURSE: The patient was immediately transferred to the surgical floor postop on a clear liq uid diet. She was ambulatory postop day #1, she was urinating on her own, had a bowel movement, adva nce to full liquid diet. On postop day #2, she is discharged home. Prescriptions given for [place] an d Zofran. She was on stress dose steroids during hospitalization, discussed with Dr. Ash, who steinberg s not recommend continuing those as an outpatient. We will monitor her very closely as an outpatient for signs of adrenal insufficiency. She will follow up with my office in 2 weeks for suture removal .
== END 2017-05-29 14:50 | disposition home or self-care (01) | DRG 330 ==
LOC: SURG A 05-27 09:27
PROVIDERS: ADMIT Surgery; ATTEND Surgery
PROC: 0DBB0ZZ Excision of Ileum, Open Approach (ICD-10-PCS; principal; 2017-05-27)
DX: Z43.2 Encounter for attention to ileostomy (principal); E27.40 Unspecified adrenocortical insufficiency; K50.90 Crohn's disease, unspecified, without complications; Z90.49 Acquired absence of other specified parts of digestive tract; Z87.19 Personal history of other diseases of the digestive system; E03.9 Hypothyroidism, unspecified
CPT/HCPCS: 36415; 80048; 85025; 88304; A4216; J0131; J0670; J0694; J1100; J1650; J1720; J1885; J2001; J2250; J2405; J2550; J2704; J3010; J7050; S0028

== ENCOUNTER 2017-06-17 18:12 | Inpatient (IN) | payer BC ==
[2017-06-17 21:16] LABS: #Lymphocytes 1.3 thou/uL (1.20-3.40); #Monocytes 0.8 thou/uL (0.11-0.59); #Neutrophils 7.7 thou/uL (1.40-6.50); %Basophils 0.3 % (0.0-1.0); %Eosinophils 0.4 % (0.0-10.0); %Lymphocytes 13.5 % (21.0-51.0); %Monocytes 7.8 % (0.0-10.0); %Neutrophils 78.1 % (42.0-75.0); Hemoglobin 13.4 g/dL (12.0-16.0); Mean Corpuscular HGB CONC 32.6 g/dL (32.0-36.0); Mean Corpuscular Hemoglobin 30.2 pg (27.0-31.0); Mean Corpuscular Volume 92.7 fl (81.0-99.0); Mean Platelet Volume 8.6 fL (7.4-10.4); Platelet Count 229 thou/uL (130-400); RBC Distribution Width 13.7 % (11.5-14.5); Red Blood Cell (RBC) Count 4.44 mill/uL (4.20-5.40); White Blood Cell (WBC) Count 9.8 thou/uL (4.8-10.8)
[2017-06-17] MEDS: Ondansetron HCl/PF 4 MG/2 ML Vial IVP PRN (21:32)
[2017-06-17] MEDS: Dextrose 5 % And 0.9 % NaCl 1,000 ML IV SCH (21:32)
[2017-06-17 22:13] VITALS: BMI 32.5
[2017-06-17 22:53] LABS: Bilirubin Negative (Negative); Blood, Urine Negative (Negative); Clarity CLEAR (Clear); Glucose, Urine (Dipstick) Negative (Negative); Leukocyte Negative (Negative); Nitrite Negative (Negative); Protein, Urine (Dipstick) Negative (Neg-Trace); Specific Gravity, Urine 1.015 (1.002-1.036); pH, Urine 7.5 (5.0-9.0)
[2017-06-17] MEDS: Piperacillin/Tazobactam 3.375 GM in Sodium Chloride 0.9% 100 ML IVPB SCH (23:52)
[2017-06-18 05:12] LABS: ALT (SGPT) 10 U/L (8-55); AST (SGOT) 10 U/L (5-34); Albumin 3.2 g/dL (3.5-5.0); Alkaline Phosphatase 60 U/L (40-150); Anion Gap 9 mmol/L (10-20); BUN (Urea Nitrogen) 9 mg/dL (9.8-20.1); Bilirubin, Total 1.1 mg/dL (0.2-1.2); Calc. Creatinine Clearance 134 mL/min (70-130); Calcium 8.7 mg/dL (7.8-10.44); Carbon Dioxide 24 mmol/L (22-29); Chloride 105 mmol/L (98-107); Estimated GFR-MDRD Greater than 90; Globulin 2.2 g/dL (2.4-3.5); Glucose 100 mg/dL (70-105); Potassium 3.3 mmol/L (3.5-5.1); Protein, Total 5.4 g/dL (6.0-8.3); Sodium 135 mmol/L (136-145)
[2017-06-18] MEDS: Piperacillin/Tazobactam 3.375 GM in Sodium Chloride 0.9% 100 ML IVPB SCH ×3 (05:50→17:42)
[2017-06-18] MEDS: Dextrose 5 % And 0.9 % NaCl 1,000 ML IV SCH ×2 (07:51→17:44)
--- NOTE | 2017-06-18 09:21 | HP ---
HISTORY OF PRESENT ILLNESS: Ms. Reyez follows up in the office with regard to her Crohn disease. Radha wong had a complicated course throughout the fall in early part of this year when she had recurrent bout s of left lower quadrant abdominal pain. We changed her from 6-MP to Humira that seemed to initially help, but then with ongoing inflammation in the sigmoid colon, she was placed on Entyvio. Despite i mprovement in her mucosal disease, it seemed that her sigmoid colon became more and more thickened an d inflamed. She was given multiple times antibiotics and ultimately she developed an abscess and it was felt to be probably diverticular, not her Crohn's and mucosal disease and completely resolved wit h Entyvio. She underwent surgical repair of that and diverting ileostomy in early March. Patholog y showed acute diverticulitis with perforation. She has done well since that surgery and ultimately had her ileostomy taken down and last night she began to have fever of 101 and abdominal pain. She w as concerned about recurrence of the diverticular disease. After her surgery, we did perform sigmoidoscopy before ileostomy takedown and there were no signs of active mucosal disease in the sigmoid colon or rectal malignancy in the past. PAST MEDICAL HISTORY: 1. Crohn disease, perianal. 2. Sigmoid diverticular disease with perforated diverticulitis. 3. Prior history of anemia, prior history of perianal fistulas. 4. Osteopenia. PAST SURGICAL HISTORY: Includes carpal tunnel, section, ectopic , laparoscopy, ton sillectomy and the sigmoid resection with ileostomy which was taken down recently. MEDICATIONS AT HOME: Metoprolol, hydrochlorothiazide and Synthroid. PHYSICAL EXAMINATION: GENERAL: The patient is resting comfortably in bed. She is without distress. VITAL SIGNS: Temperature is 99.5 presently, pulse 112 and blood pressure 112/62. Weight is 98. LUNGS: Clear. HEART: Regular rate and rhythm without clicks or murmurs. ABDOMEN: Soft. There is tenderness diffusely, but more so in the right lower quadrant than the left . There is no rebound. There is no guarding. ASSESSMENT: 1. Crohn disease, seemingly under good control, Entyvio. 2. Recent diverticular abscess with surgical repair and diverting ileostomy. She had a followup sig moidoscopy confirming mucosal healing and good healing of her anastomosis in the rectosigmoid before takedown of her ostomy in April; now months later, she is having fever and mild tachycardia. PLAN: We will admit to the hospital for imaging cultures in this complicated patient with diverticul ar disease and Crohn's.
--- NOTE | 2017-06-18 11:28 | CT ---
CT OF THE ABDOMEN AND PELVIS WITH IV CONTRAST: INDICATION: History of recent colectomy with ileostomy with recent ileostomy takedown. The patient now has fever and right-side abdominal pain. COMPARISON: MRI of the abdomen dated 03/05/[address] of the abdomen and pelvis dated 12/11/16. FINDINGS: There is some subsegmental atelectasis involving the right lower lobe. There is a stable moderate-si zed hiatal hernia. There is some focal fatty infiltration near the falciform ligament which is likely stable. The adrenal glands, pancreas, and spleen appear within normal limits. The kidneys are normal-appeari ng. There is some inflammatory infiltration with a small amount of fluid and gas within the right lower q uadrant subcutaneous tissues along the anterior abdominal wall likely reflecting prior ileostomy site . A small amount of fluid and gas likely related to the patient's recent postop state. A small amou nt of cutaneous inflammatory infiltration involving the subcutaneous fat of the anterior wall of the left lower quadrant likely related to a port site. There is scattered free fluid involving the mesen teric leaves of the lower abdomen. There is some small amount of fluid in the pelvis. No drainable fluid collection is evident. The bladder is decompressed. Anastomotic suture line is seen within th e lower pelvis. No overt bowel wall thickening is grossly evident. There is no evidence of obstruct ion. There is some wall thickening and perirectal inflammatory stranding involving portions of the r ectum which appear slightly more pronounced than on the comparison exam. There is scattered degenera tive and osteoarthritic change. IMPRESSION: 1. Findings most consistent with the patient's recent postop state of an ileostomy reversal. The il eo-ileal anastomosis is seen within the right lower quadrant of the abdomen without overt evidence of obstruction or overt leak. There is some fluid present within the mesenteric leaves of the lower ab domen as well as within the pelvis which could be postoperative in nature. No drainable fluid collec tion or definite intraabdominal abscess is evident. 2. Fluid and gas collection seen of the subcutaneous tissues of the anterior abdominal wall overlyin g the right lower quadrant suspicious for postoperative change. No definite drainable fluid collecti on or abscess is evident. Port site suspected within the subcutaneous tissues of the left lower quad rant anterior abdominal wall. 3. Wall thickening involving portions of the rectum suspicious for changes of mild proctitis. 4. Stable moderate hiatal hernia. 5. Focal fatty infiltration near the falciform ligament. POS: [facility]
[2017-06-18] MEDS: Fentanyl 100 MCG/2 ML VIAL SLOW IVP PRN (12:41)
--- NOTE | 2017-06-18 14:48 | PRG ---
DATE OF SERVICE: 06/18/2017 SUBJECTIVE: Ms. Reyez is still complaining of mild, a kind of lower abdominal pain. States that it started yesterday. She had bent over and done some more physical work in the morning, but much more sore across the lower abdomen, cramping pain, not associated with diarrhea. She had temperature to 1 02. No nausea or vomiting. She has been having normal bowel movements. She states more liquidy tod ay after the CAT scan. PHYSICAL EXAMINATION: VITAL SIGNS: Afebrile, pulse 79, respirations 16. CHEST: Clear. HEART: Regular rate and rhythm. ABDOMEN: Soft, it is diffuse mildly tender. Little bit right lower quadrant guarding without reboun d. Her incision is healing well. There is no evidence of infection. She has a small amount of drai nage because she still has the tiniest of ulcer wounds at the ileostomy closure site, but no evidence of enterocutaneous fistula. LABORATORY DATA AND IMAGING DATA: White blood cell count is 9, hemoglobin 13, normal differential. Sodium 135, potassium 3.3. Liver function tests normal. CT scan reveals recent postoperative findin gs consistent with postop changes, small amount of fluid in the subcu tissues, right lower quadrant, wall thickening of the rectum, stable hiatal hernia. ASSESSMENT: Postoperative pain with fever; however, white blood cell count, normal nontachycardic. Abdomen is fairly benign. PLAN: Continue observation for now. Likely would allow for at least a liquid diet. Question whethe r this could represent some sort of Crohn's or colitis exacerbation which she responded to steroids. We will discuss with Dr. Ash. We will follow.
[2017-06-18] MEDS: Ondansetron HCl/PF 4 MG/2 ML Vial IVP PRN (17:44)
[2017-06-19] MEDS: Piperacillin/Tazobactam 3.375 GM in Sodium Chloride 0.9% 100 ML IVPB SCH ×5 (00:21→22:52)
[2017-06-19] MEDS: Dextrose 5 % And 0.9 % NaCl 1,000 ML IV SCH ×2 (05:08→14:27)
[2017-06-19 05:34] LABS: #Eosinphils 0.2 thou/uL (0.0-0.7); #Lymphocytes 0.9 thou/uL (1.20-3.40); #Monocytes 0.8 thou/uL (0.11-0.59); #Neutrophils 4.7 thou/uL (1.40-6.50); %Eosinophils 3.4 % (0.0-10.0); %Lymphocytes 13.9 % (21.0-51.0); %Monocytes 11.6 % (0.0-10.0); %Neutrophils 71.1 % (42.0-75.0); Hemoglobin 12.3 g/dL (12.0-16.0); Mean Corpuscular HGB CONC 32.4 g/dL (32.0-36.0); Mean Corpuscular Hemoglobin 30.2 pg (27.0-31.0); Mean Corpuscular Volume 93.2 fl (81.0-99.0); Platelet Count 191 thou/uL (130-400); RBC Distribution Width 13.5 % (11.5-14.5); Red Blood Cell (RBC) Count 4.08 mill/uL (4.20-5.40); White Blood Cell (WBC) Count 6.6 thou/uL (4.8-10.8)
[2017-06-19] MEDS: Ondansetron HCl/PF 4 MG/2 ML Vial IVP PRN ×2 (09:15→22:53)
[2017-06-19] MEDS: Fentanyl 100 MCG/2 ML VIAL SLOW IVP PRN ×3 (09:21→22:53)
--- NOTE | 2017-06-19 12:08 | PRG ---
DATE OF SERVICE: 06/18/2017 SUBJECTIVE: Ms. Reyez still does not feel good. Today she tells me she actually has had about 3 or 4 bowel movements a day, liquid in the past several days. She has been in [place] taking care of her friend who had a knee surgery, he was having some stone problems. She attributes that to pain medic ations. Here, she has had no fever, just felt hot today. She was registered at 99, at 1600 hours. OBJECTIVE: VITAL SIGNS: Temperature is still the same 99.2, pulse 86, blood pressure 102/69. LUNGS: Clear. CARDIAC: Heart regular, without clicks or murmurs. ABDOMEN: Tender in the right lower quadrant. There is even tender with just touching the skin almos t. HEART: Regular rate and rhythm. RECTAL: Reveals a skin tag, but no fissures or fistula. She is very warm to the touch. EXTREMITIES: No clubbing, cyanosis or edema. LABORATORY AND IMAGING DATA: White count is 9.8, hemoglobin is 13, and platelet count is 229 with a normal differential. Her chemistries are normal with an albumin of 3.2. Urine was negative. Blood cultures are pending. Cortisol was 8.4. CT scan showed some stranding in the right lower abdomen co nsistent with area where her ostomy was taken down. There is no fistulous tract seen there, although there is a small amount of fluid and gas in those tissues. There is no overall bowel wall thickenin g in the ileum or in the right lower quadrant or left lower quadrant. There is some stranding in the area of the rectum, which is present. ASSESSMENT: New onset fevers 3 weeks after her ileostomy reversal. She had a sigmoid resection back in March for diverticular disease. She has a history of Crohn's. There were no signs of Crohn's found in the segment of diverticular disease in the sigmoid colon. In fact, her perianal Crohn's had actually almost completely resolved before her sigmoid resection surgery as did the ulcerations in t he rectum and descending colon. Gastritis versus flare in Crohn's. She states she was doing very well prior to this admission. Ther e is fever again and that is what she had before. It was felt that her diverticular disease was not Crohn's as there were no granulomas or postoperative changes seen. Pathologically, everything else h ad improved with all the other mucosal disease had improved with treatment with Entyvio. PLAN: We will get stool studies. Await cultures. Continue antibiotics, hold off on steroids for no w.
[2017-06-20] MEDS: Dextrose 5 % And 0.9 % NaCl 1,000 ML IV SCH ×2 (00:52→05:20)
[2017-06-20] MEDS: Piperacillin/Tazobactam 3.375 GM in Sodium Chloride 0.9% 100 ML IVPB SCH ×2 (05:20→11:40)
[2017-06-20] MEDS: Fentanyl 100 MCG/2 ML VIAL SLOW IVP PRN (08:29)
--- NOTE | 2017-06-20 09:47 | PRG ---
DATE OF SERVICE: 06/19/2017 SUBJECTIVE: Ms. Reyez states she is actually feels little bit better, she walks around today. She h as had 2 loose stools today. She had a T-max of 99, recorded last night. Retrospection, she became ill Friday evening, before that she states she was doing fine. With eating, she gets some periumbil ical right lower quadrant pain. PHYSICAL EXAMINATION: VITAL SIGNS: Temperature is 98.1, T-max 99 last night, pulse 79, blood pressure 101/67. ABDOMEN: Soft, it is drier take off tender mildly in the right lower quadrant, more so than left, but not as much. She has no rebound or guarding. LABORATORY STUDIES: White count 6.6, hemoglobin 12.6, ESR is 12, platelet count 191. C-reactive pro tein is 13. Urine shows slight ketones. Microbiology: Stool lactoferrin positive, Campylobacter in stool negative, E. coli negative. Stool culture enteric [place] is pending. C. diff is negativ e. ASSESSMENT AND PLAN: History of Crohn's with previous sigmoid resection, which was felt not related to Crohn's, but to a diverticular abscess. There is no Crohn's seen in that pathology specimen and h er disease predominantly has been perianal before that with rectal ulcers which had improved on Entyv io. Her resection was in early March, takedown of ileostomy was 05/28/2017. Present symptoms either represent a flare in her Crohn's or infectious process. Presently, she is im proving with antibiotics. She had acute onset of symptoms on Friday evening and has been fine befor e that. She coincidentally had a scheduled followup with me on Friday and we admitted her from [facility]. We will continue with IV fluids, empiric antibiotics, full liquid diet. If she is not improvi ng, consider repeat endoscopy or reintroduction of steroids.
--- NOTE | 2017-06-20 10:11 | PDOC.GSPN ---
Surgery Progress Note: Subj - Subjective Narrative: Pain much improved. No nausea and bloating resolved. Surgery Progress Note: Obj - Vital signs Vital signs: Vital Signs - Most Recent Temp Pulse Resp BP Pulse Ox 98.1 F 71 18 112/74 99 06/20/17 08:00 06/20/17 08:00 06/20/17 08:00 06/20/17 08:00 06/20/17 08:00 - Physical Exam General: no distress Abdomen: soft, non tender Surgery Progress Note: Results - Labs Result Diagrams: 06/19/17 04:37 06/18/17 03:48 Surgery Progress Note: A/P - Problem (1) Abdominal pain Current Visit: No Code(s): R10.9 - UNSPECIFIED ABDOMINAL PAIN Status: Acute Assessment and Plan: Pain much improved. Likely to DC today. Already has apt to see me back in a few weeks.
[2017-06-20 12:20] VITALS: BP 99/64; TEMP 97.4
--- NOTE | 2017-06-20 21:39 | DIS ---
DATE OF ADMISSION: 06/17/2017 DATE OF DISCHARGE: 06/20/2017 ADMITTING DIAGNOSES: 1. Fever up to 102 at home. 2. Abdominal pain. 3. History of Crohn disease. 4. History of recent sigmoid resection in 03/2017 for Crohn's versus diverticular disease. This see med to be diverticular disease. Crohn's has primarily been perianal fistulous disease, which is reso lved on Entyvio. DISCHARGE DIAGNOSES: Abdominal pain, resolved; diarrhea, resolved; fever, resolved. Diagnosis is un clear. This may have been gastroenteritis. It could be an exacerbation of her Crohn's. Her surgeon thought she had possibly some scar tissue around the previous ileostomy site. PROCEDURES: The patient had a CAT scan of abdomen and pelvis on admission on 06/18/2017. This showe d some scattered fluid mesenteric lesion in lower abdomen. Small amount of inflammatory change aroun d the right lower quadrant of the previous ileostomy site, but no evidence of fistulous tracts or ile itis. Suture line in the lower pelvis, no overt bowel wall thickening, some mild perirectal inflamma tory stranding. HOSPITAL COURSE: The patient was admitted to the hospital. She did have a rectal exam with no evide nce of perianal Crohn disease. She had diarrhea with positive lactoferrin, but stool culture and ova and parasites were negative. She was placed empirically on Zosyn. She was hydrated. Gradually, he r pain went away and her appetite returned. She was able to eat without discomfort. She was not giv en steroids. Cortisol was obtained, as she has had previous adrenal insufficiency with adrenal acces s suppression from steroids. Here her cortisol is 8.4 on admission. C-reactive protein was 13. Sed rate was 12. White count was 9.8 on admission and was 6.6 yesterday, hemoglobin was 12.3, platelets 191. Presently, she is better and she is going to go home. DISCHARGE DISPOSITION: 1. Low residue diet. 2. She has Levaquin and Flagyl antibiotics at home, which are ready for her and she is going to pick those up. I have asked her to take them for 5 more days. 3. We will give her some Ultram for pain. 4. Follow up in the office in 3-4 days.
== END 2017-06-20 14:14 | disposition home or self-care (01) | DRG 392 ==
LOC: T4-B 18:12
PROVIDERS: ADMIT Internal Medicine Gastroenterology; ATTEND Internal Medicine Gastroenterology
DX: K52.9 Noninfective gastroenteritis and colitis, unspecified (principal); K50.90 Crohn's disease, unspecified, without complications; G89.18 Other acute postprocedural pain; R50.9 Fever, unspecified; R00.0 Tachycardia, unspecified; Z87.891 Personal history of nicotine dependence
CPT/HCPCS: 36415; 74177; 80053; 81003; 82533; 83630; 85025; 85652; 86140; 87040; 87045; 87046; 87086; 87324; 87449; 87899; A4216; J2405; J2543; J3010; J7050

== ENCOUNTER 2017-08-29 08:03 | Emergency (ER) | payer BC ==
--- NOTE | 2017-08-29 08:54 | RAD ---
CHEST 1 VIEW: Date: 08/29/17 HISTORY: Chest pain. COMPARISON: 04/03/17. FINDINGS: Cardiac silhouette and pulmonary vasculature are unremarkable. Mediastinum midline. Calcified granulo torres are consistent with healed granulomatous disease. No lobar consolidation or evidence of pneumoth orax. Small hiatal hernia. IMPRESSION: No active cardiopulmonary abnormalities are demonstrated. POS: [facility]
[2017-08-29 09:00] LABS: #Eosinphils 0.2 thou/uL (0.0-0.7); #Lymphocytes 1.1 thou/uL (1.20-3.40); #Monocytes 0.3 thou/uL (0.11-0.59); #Neutrophils 4.7 thou/uL (1.40-6.50); %Basophils 0.2 % (0.0-1.0); %Eosinophils 2.7 % (0.0-10.0); %Lymphocytes 17.8 % (21.0-51.0); %Monocytes 4.4 % (0.0-10.0); %Neutrophils 74.8 % (42.0-75.0); Hemoglobin 14.1 g/dL (12.0-16.0); Mean Corpuscular HGB CONC 32.3 g/dL (32.0-36.0); Mean Corpuscular Volume 92.7 fl (81.0-99.0); Mean Platelet Volume 9.1 fL (7.4-10.4); Platelet Count 175 thou/uL (130-400); RBC Distribution Width 13.4 % (11.5-14.5); White Blood Cell (WBC) Count 6.3 thou/uL (4.8-10.8)
[2017-08-29 09:29] LABS: BHCG - Serum Negative (NEGATIVE); Pregs Control Background? CLEAR/WHITE (CLR/WHITE); Pregs Control Bar Appear? YES (CONTROL BAR)
[2017-08-29 09:35] LABS: ALT (SGPT) 15 U/L (8-55); AST (SGOT) 22 U/L (5-34); Albumin 3.8 g/dL (3.5-5.0); Alkaline Phosphatase 107 U/L (40-150); Anion Gap 11 mmol/L (10-20); BUN (Urea Nitrogen) 19 mg/dL (9.8-20.1); Bilirubin, Total 0.8 mg/dL (0.2-1.2); Calc. Creatinine Clearance 0 mL/min (70-130); Calcium 9.4 mg/dL (7.8-10.44); Carbon Dioxide 26 mmol/L (22-29); Chloride 106 mmol/L (98-107); Estimated GFR-MDRD Greater than 90; Globulin 2.6 g/dL (2.4-3.5); Glucose 103 mg/dL (70-105); Potassium 3.8 mmol/L (3.5-5.1); Protein, Total 6.4 g/dL (6.0-8.3); Sodium 139 mmol/L (136-145)
[2017-08-29 09:38] LABS: CKMB 0.3 ng/mL (0-6.6); Troponin I Less than 0.010 ng/mL (< 0.028)
--- NOTE | 2017-08-29 11:09 | CT ---
CT PULMONARY ANGIOGRAM WITH IV CONTRAST AND 3D POSTPROCESSING: Date: 08/29/17 HISTORY: Chest pain radiating to the back. FINDINGS: The pulmonary arterial vasculature is well opacified without filling defects to suggest pulmonary emb olism. No aneurysm or dissection is seen in the thoracic aorta. No pleural or pericardial effusions a re noted. There is a calcified granuloma in the left lower lobe. No pneumothoraces or focal areas of consolidation are seen. There are mild degenerative changes in the spine. A 1.0 cm right retrocrural lymph node is stable compared to the CT abdomen of 06/18/17. IMPRESSION: No CT evidence of pulmonary embolism. POS: [facility]
[2017-08-29] MEDS ORDERED: ISOVUE-370 76%-LOCM 1 ML ONE (16:31)
== END 2017-08-29 10:51 | disposition home or self-care (01) ==
LOC: ERS 08:03
DX: R07.89 Other chest pain (principal); E03.9 Hypothyroidism, unspecified; Z79.899 Other long term (current) drug therapy
CPT/HCPCS: 71045; 71275; 80053; 82553; 84484; 84703; 85025; 85379; 93005

== ENCOUNTER 2018-11-11 10:31 | Outpatient (CLI) | payer BC ==
--- NOTE | 2018-11-11 11:13 | ULT ---
SOFT TISSUE NECK: Date: 11/11/18 HISTORY: Fullness and discomfort in the left lateral neck region. FINDINGS: A small lymph node is noted in the left neck measuring 0.3 x 0.6 x 0.8 cm in size. No evidence for ot her solid or cystic mass. No abnormal fluid collection. Visualized right submaxillary gland region is unremarkable. IMPRESSION: Probable incidental small lymph node in the right neck. No solid or cystic mass. If the patient has persistent or nonresolving palpable finding or other symptoms referable to the nec k, a follow-up neck CT scan with IV contrast should be considered. POS: [facility]
== END 2018-11-11 10:32 | disposition home or self-care (01) ==
LOC: BICULT 10:31
PROVIDERS: ATTEND Internal Medicine
DX: R22.1 Localized swelling, mass and lump, neck (principal)
CPT/HCPCS: 76536

== ENCOUNTER 2018-12-16 10:07 | Outpatient (CLI) | payer BC ==
--- NOTE | 2018-12-16 10:52 | CT ---
CT OF THE NECK WITH IV CONTRAST: DATE: 12/16/2018. COMPARISON: None. HISTORY: Right-sided neck swelling for 3 months. TECHNIQUE: Axial CT imaging at 3 mm intervals from the skull base through the lung apices with IV contrast. Hailey nal and sagittal reformatted imaging obtained. FINDINGS: The imaged brain parenchyma appears grossly unremarkable. The visualized paranasal sinuses/mastoid air cells are well aerated. The retroantral fat and the parapharyngeal fat is clear bilaterally. The parotid glands and the subma ndibular glands appear grossly unremarkable as well. The imaged lung apices are within normal limits. The tonsillar pillars, the oral tongue and floor of mouth, the epiglottis and preepiglottic fat, the hyoid bone, the thyroid cartilage, cricoid cartilage, the level of the glottis, and of the thyroid gland appear grossly unremarkable. A needle cap rueda the area of palpable concern on the right. Deep to the needle cap, there is no mas s lesion or fluid collection. No lymphadenopathy is seen in this region. The vascular structures of the neck appear patent. Multiple subcentimeter nodes are noted within level 5 bilaterally. No posterior triangle lymphadenop athy is noted on either side. Scattered subcentimeter level 2 lymph nodes are noted with no lymphadenopathy noted within level 2 on either side. Review of the osseous structures demonstrates degenerative change at C5-6 with disc space narrowing a s well as anterior and posterior osteophyte formation. No lytic or blastic bone lesion. IMPRESSION: No mass lesion or lymphadenopathy. Deep to the area of palpable concern, no discrete abnormality is s een. Transcribed Date/Time: 12/16/2018 12:55 PM
== END 2018-12-16 10:08 | disposition home or self-care (01) ==
LOC: BICCT 10:07
PROVIDERS: ATTEND Internal Medicine
DX: R22.1 Localized swelling, mass and lump, neck (principal)
CPT/HCPCS: 70491

== ENCOUNTER 2019-04-15 12:58 | Outpatient (CLI) | payer BC ==
--- NOTE | 2019-04-15 13:24 | MMO ---
Bilateral MAMMO Bilat Screen [facility]. CLINICAL HISTORY: Patient is 58 years old and is seen for screening. The patient has no family history of breast cancer. The patient has no personal history of cancer. VIEWS: The views performed were: bilateral craniocaudal with tomosynthesis and bilateral mediolateral oblique with tomosynthesis. FILMS COMPARED: The present examination has been compared to prior imaging studies performed at [facility] on 06/19/2010, 07/22/2011 and 10/19/2013. This study has been interpreted with the assistance of computer-aided detection. MAMMOGRAM FINDINGS: There are scattered fibroglandular densities. There are stable benign appearing calcifications seen in both breasts. There are no suspicious masses, suspicious calcifications, or new areas of architectural distortion. IMPRESSION: THERE IS NO MAMMOGRAPHIC EVIDENCE OF MALIGNANCY. A ROUTINE FOLLOW-UP MAMMOGRAM IN 1 YEAR IS RECOMMENDED. THE RESULTS OF THIS EXAM WERE SENT TO THE PATIENT. ACR BI-RADS Category 2 - Benign finding MAMMOGRAPHY NOTE: 1. A negative mammogram report should not delay a biopsy if a dominant of clinically suspicious mass is present. 2. Approximately 10% to 15% of breast cancers are not detected by mammography. 3. Adenosis and dense breasts may obscure an underlying neoplasm. Reported by: EDGARD CUMMINGS MD Electonically Signed: [id number]
== END 2019-04-15 12:59 | disposition home or self-care (01) ==
LOC: BICMAMMO 12:58
PROVIDERS: ATTEND Obstetrics & Gynecology
DX: Z12.31 Encounter for screening mammogram for malignant neoplasm of breast (principal)
CPT/HCPCS: 77063; 77067

== ENCOUNTER 2021-01-18 18:00 | Outpatient (CLI) | payer BC | END 2021-01-18 18:01 | disposition home or self-care (01) | LOC: SLEEPLAB 18:00 | PROVIDERS: ATTEND Internal Medicine Critical Care Medicine | DX: G47.33 Obstructive sleep apnea (adult) (pediatric) (principal); E66.9 Obesity, unspecified; F32.9 Major depressive disorder, single episode, unspecified; K21.9 Gastro-esophageal reflux disease without esophagitis; G47.00 Insomnia, unspecified; G47.10 Hypersomnia, unspecified; Z68.39 Body mass index [BMI] 39.0-39.9, adult | CPT/HCPCS: 95806 ==

== ENCOUNTER 2022-03-26 06:31 | Observation (INO) | payer BC ==
[2022-03-22 14:57] VITALS: BMI 41.1
[2022-03-26] MEDS ORDERED: Bupivacaine/Epinephrine 0.25% 30 ML VIAL ONE (08:24)
[2022-03-26] MEDS ORDERED: Fentanyl 250 MCG/5 ML VIAL ONE ×2 (09:08→11:39)
[2022-03-26] MEDS ORDERED: SUGAMMADEX SODIUM 200 MG/2 ML VIAL ONE (09:09)
[2022-03-26] MEDS ORDERED: Dexmedetomidine 200 MCG/2 ML VIAL ONE (09:09)
[2022-03-26] MEDS ORDERED: Sodium Chloride 0.9% 100 ML ONE (09:13)
[2022-03-26] MEDS ORDERED: CEFAZOLIN 2 GM VIAL ONE (09:13)
[2022-03-26] MEDS ORDERED: PHENYLEPHRINE-NS 100 MCG/ML 10 ML SYRINGE ONE (09:28)
[2022-03-26] MEDS ORDERED: Rocuronium Bromide 10 MG/ML (10ML VIAL) ONE (09:28)
[2022-03-26] MEDS ORDERED: Dexamethasone 20 MG/5 ML VIAL ONE (09:28)
[2022-03-26] MEDS ORDERED: PROPOFOL 200 MG/20 ML VIAL ONE (09:28)
[2022-03-26] MEDS ORDERED: ePHEDrine 50 MG/ML VIAL ONE (09:28)
[2022-03-26] MEDS ORDERED: Ondansetron PF 4 MG/2 ML Vial ONE (09:28)
[2022-03-26] MEDS ORDERED: Glycopyrrolate 0.2 MG/ML 5 ML SYRINGE ONE (09:28)
[2022-03-26] MEDS ORDERED: NEOSTIGMINE 3 MG/3 ML SYR 3 MG/3 ML SYRINGE ONE (09:28)
[2022-03-26] MEDS ORDERED: Esmolol 100 MG/10 ML VIAL ONE (09:28)
[2022-03-26] MEDS ORDERED: Lidocaine 1% PF 5 ML VIAL ONE (09:28)
[2022-03-26] MEDS ORDERED: Promethazine HCl 25 MG/ML VIAL IVPB PRN (11:10)
[2022-03-26] MEDS ORDERED: Ondansetron HCl/PF 4 MG/2 ML Vial IVP PRN (11:10)
[2022-03-26] MEDS ORDERED: Promethazine HCl 25 MG/ML VIAL IM PRN ×2 (11:10→11:15)
[2022-03-26] MEDS ORDERED: hydrALAZINE 20 MG/ML VIAL SLOW IVP PRN (11:15)
[2022-03-26] MEDS ORDERED: Dextrose 5% in Water 1,000 ML IV PRN (11:15)
[2022-03-26] MEDS ORDERED: Hydrocodone-Acetamin 15 ML UDCUP PO PRN (11:15)
[2022-03-26] MEDS ORDERED: Dextrose 50% Abboject 50 ML SYRINGE SLOW IVP PRN (11:15)
[2022-03-26] MEDS ORDERED: D5 1/2 NS w/20 mEq KCL 1,000 ML ONE (12:09)
[2022-03-26 12:46] LABS: SARS-CoV-2 NAA Rapid Test Not Detected (NotDetected)
[2022-03-26] MEDS ORDERED: HYDROmorphone 0.5 MG/0.5 ML SYRINGE ONE ×2 (12:56→14:07)
[2022-03-26] MEDS: Ondansetron PF 4 MG/2 ML Vial IVP PRN (17:54)
[2022-03-26] MEDS: D5 1/2 NS w/20 mEq KCL 1,000 ML IV SCH (17:54)
[2022-03-26] MEDS: Famotidine 20 MG TAB PO SCH (18:59)
[2022-03-26] MEDS: Fentanyl 100 MCG/2 ML VIAL SLOW IVP PRN (20:26)
[2022-03-26] MEDS: Famotidine/PF 20 mg/2ml Vial SLOW IVP SCH (20:26)
[2022-03-27] MEDS: D5 1/2 NS w/20 mEq KCL 1,000 ML IV SCH ×2 (00:42→14:47)
[2022-03-27] MEDS: Fentanyl 100 MCG/2 ML VIAL SLOW IVP PRN (01:06)
[2022-03-27] MEDS: Famotidine 20 MG TAB PO SCH (08:20)
[2022-03-27] MEDS ORDERED: Enoxaparin Sodium 40 MG/0.4 ML SYRINGE SC SCH (09:00)
[2022-03-27 09:17] VITALS: BP 99/67; TEMP 97.7
[2022-03-27] MEDS: Famotidine/PF 20 mg/2ml Vial SLOW IVP SCH (09:33)
[2022-03-27] MEDS: Ondansetron PF 4 MG/2 ML Vial IVP PRN (11:38)
== END 2022-03-27 15:45 | disposition home or self-care (01) ==
LOC: SDC 06:31 → T4-A 16:50
PROVIDERS: ADMIT Surgery; ATTEND Surgery
PROC: 0BQT4ZZ Repair Diaphragm, Percutaneous Endoscopic Approach (ICD-10-PCS; principal; 2022-03-26)
PROC: 8E0W4CZ Robotic Assisted Procedure of Trunk Region, Percutaneous Endoscopic Approach (ICD-10-PCS; 2022-03-26)
DX: K44.9 Diaphragmatic hernia without obstruction or gangrene (principal); E03.9 Hypothyroidism, unspecified; K21.9 Gastro-esophageal reflux disease without esophagitis; G47.30 Sleep apnea, unspecified; E66.9 Obesity, unspecified; Z68.41 Body mass index [BMI] 40.0-44.9, adult; Z79.620 Long term (current) use of immunosuppressive biologic; Z79.890 Hormone replacement therapy; Z91.040 Latex allergy status; Z20.822 Contact with and (suspected) exposure to COVID-19
CPT/HCPCS: 96372; 96374; 96375; G0378; J1100; J1170; J1650; J2405; J2704; J3010; J3480; J3490; S0028; U0002